=== PATIENT | male | born 1950 | race Caucasian/White ===

== ENCOUNTER → 2018-03-20 11:33 | Outpatient (CLI) | payer MEDICARE, OTHER, SELFPAY ==
--- NOTE | 2018-03-20 11:51 | DI.RAD.S_ITS ---
PROCEDURE: XR WRIST RT MIN 3V INDICATIONS: 67 year-old male with right wrist swelling and pain. TECHNIQUE: 4 views of the wrist were acquired. COMPARISON: None available. FINDINGS: Bones: No acute fractures or dislocations. Nonacute nonunited dorsal triquetral avulsion fracture is present on the lateral view. There is significant radiocarpal compartment joint degeneration. No suspicious bony lesions. Scaphoid view: Scaphoid appears intact. Soft tissues: There is radiocarpal compartment chondrocalcinosis. 1.3 cm posttraumatic heterotopic ossification is noted adjacent to the distal scaphoid and trapezium. IMPRESSION: 1. Nonacute nonunited dorsal triquetral avulsion fracture. 2. 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 3. Chondrocalcinosis as well as significant radiocarpal compartment degenerative narrowing, consistent with CPPD deposition disease. Dictated by: Leopoldo Goldstein M.D. on 03/20/2018 at 12:08 Approved by: Leopoldo Goldstein M.D. on 03/20/2018 at 12:12
== END ==
PROVIDERS: PCP Family Medicine; Visit Provider Family Medicine
DX: M11.231 Other chondrocalcinosis, right wrist (principal); M25.531 Pain in right wrist
CPT/HCPCS: 73110

== ENCOUNTER → 2018-08-14 09:06 | Outpatient (CLI) | payer MEDICARE, OTHER, SELFPAY ==
--- NOTE | 2018-08-14 09:08 | DI.MRI.S_ITS ---
PROCEDURE: MR LUMBAR SPINE WO CON INDICATIONS: Eval TECHNIQUE: Noncontrast sagittal T1 spin echo and T2 fast echo, sagittal STIR, axial T1 and T2 fast spin echo through the lumbar spine. In cases with scoliosis, additional coronal T2 fast spin echo may be performed. COMPARISON: [facility], MR, L-SPINE WITHOUT CONTRAST, 06/14/2014, 7:50. [facility], CR, L-SPINE 2-3 VIEWS, 03/18/2014, 9:16. [facility], CR, SPINE LUMB 2 OR 3VW, 02/03/2015, 14:55. FINDINGS: Image quality: Excellent. Alignment and Curvature: There is normal bony alignment. Bones: Minimal reactive endplate changes noted adjacent to the L3-L4 disc. Orthopedic screws noted across the right sacroiliac joint. No acute vertebral body compression fractures. Spinal Cord: Conus medullaris terminates at the T12 level. Visualized cord demonstrates normal signal and size. Paraspinous Soft Tissues: No paravertebral masses. L1-L2: Loss of the signal. Minimal, diffuse disc bulge. No central stenosis. Moderate bilateral neural foraminal narrowing. Focal high intensity zone noted in the posterior annulus. L2-L3: Loss of disc signal. Mild, diffuse disc bulge. Mild bilateral facet hypertrophy. Mild narrowing of the central canal. Moderate bilateral neural foraminal narrowing. No neural impingement. Focal high intensity zone noted in posterior annulus. L3-L4: Loss of disc signal and height. Mild, diffuse disc bulge. Moderate facet and mild ligamentum flavum hypertrophy. Moderate narrowing of the central canal. Severe bilateral neural foraminal narrowing with slight flexion deformity of the exiting L3 nerve roots. L4-L5: Loss of the signal. Mild diffuse disc bulge. Moderate facet and moderate ligamentum flavum hypertrophy. Moderate narrowing of the central canal. Mild bilateral neural foraminal narrowing. No neural impingement. L5-S1: Loss of disc signal and height. Mild, diffuse disc bulge. Small left central disc protrusion. Mild bilateral facet hypertrophy. Left central disc protrusion abuts and displaces the traversing left S1 nerve root. Mild bilateral neural foraminal narrowing. Focal high intensity zone within the posterior annulus. IMPRESSION: 1. Multilevel degenerative disc disease. 2. Multilevel facet arthropathy. 3. Moderate L3-L4 and L4-L5 central canal narrowing. Mild L2-L3 central canal narrowing. 4. Severe bilateral L3-L4 neural foraminal narrowing. Moderate bilateral L1-L2 and L2-L3 neural foraminal narrowing. Mild bilateral L4-L5 and L5-S1 neural foraminal narrowing. 5. Slight flattened deformity of the exiting L3 nerve root secondary to neural foraminal narrowing. Please correlate with clinical data. 6. Small central L5-S1 disc protrusion abuts and displaces the traversing left S1 nerve root. Please correlate with clinical data. Dictated by: Candi Casey MD, PhD on 08/14/2018 at 10:44 Approved by: Candi Casey MD, PhD on 08/14/2018 at 11:18
== END ==
PROVIDERS: PCP Family Medicine; Visit Provider Physical Medicine & Rehabilitation
DX: M51.36 Other intervertebral disc degeneration, lumbar region (principal); M51.37 Other intervertebral disc degeneration, lumbosacral region; M47.816 Spondylosis without myelopathy or radiculopathy, lumbar region; M47.817 Spondylosis without myelopathy or radiculopathy, lumbosacral region; M48.061 Spinal stenosis, lumbar region without neurogenic claudication; M48.07 Spinal stenosis, lumbosacral region
CPT/HCPCS: 72148

== ENCOUNTER → 2018-08-31 17:52 | Outpatient (REF) | payer MEDICARE, OTHER, SELFPAY | LOC: LAB 17:52 | PROVIDERS: PCP Family Medicine; Visit Provider Family Medicine | DX: T14.8XXA Other injury of unspecified body region, initial encounter (principal) | CPT/HCPCS: 87070; 87075; 87205 ==

== ENCOUNTER 2018-10-24 08:23 | Outpatient (CLI) | payer MEDICARE, SELFPAY ==
--- NOTE | 2018-10-24 08:28 | DI.RAD.S_ITS ---
PROCEDURE: PAIN SI JOINT INJECTION INDICATIONS: SACROCOCCYGEAL PAIN FINDINGS: Fluoroscopic spot filming was performed to verify placement of a spinal needle involving the inferior right sacroiliac joint, as labeled on the films. Appropriate location(s) of the needle tip(s) was confirmed by injection of iodinated contrast. IMPRESSION: Intraprocedural examination within normal limits. Dictated by: Song Meehan M.D. on 10/25/2018 at 8:58 Approved by: Song Meehan M.D. on 10/25/2018 at 8:59
[2018-10-24 08:34] VITALS: BP 155/90; PULSE 75; RESP 16; TEMP 37.1; O2SAT 96
--- NOTE | 2018-10-24 08:39 | PC.NURSE ---
PT REFUSING IV. HAVE EXPLAINED PROTOCAL AND SAFETY REASON OF WHY IV IS REQUIRED. PT CONTINUES TO REFUSE. WILL ALLOW DR. LAKHANI TO SPEAK WITH PT AND MAKE FINAL CALL.
[2018-10-24 09:15] VITALS: BP 147/96; PULSE 73; RESP 10; O2SAT 97
[2018-10-24] MEDS: MIDAZOLAM 5 MG/5 ML VIAL IV (09:15)
[2018-10-24 09:20] VITALS: BP 147/92; PULSE 81; RESP 14; O2SAT 97
[2018-10-24 09:24] VITALS: BP 142/89; PULSE 72; RESP 15; O2SAT 96
--- NOTE | 2018-10-24 09:31 | P.PCN_ITS ---
Procedures Date/Time Date of procedure: 10/24/18 Time of procedure: 09:30 General Procedure description: PREOP Dx: Sacroiliac joint pain/DJD POST OP DX: Sacroiliac Joint Pain/DJD Procedures: Fluoroscopic guided contrast controlled left sacroiliac joint injection Physician: Carlos A Awad D.O. Indications: Vinnie is referred by Dr. Gonzalez for treatment of left sacroiliac joint DJD Description of procedure Fluoroscopic guided, contrast controlled left sacroiliac joint injection Following denial of allergies and review of potential side effects and complications, including, but not necessarily limited to, infection, allergic reaction, local tissue breakdown, temporary as well as permanent nerve injury, paralysis, stroke and possible , the patient indicated that they understood and agreed to proceed. An informed consent was signed by the patient , witnessed by a nurse, and placed in the patient's chart. Additionally, other treatment options including modalities, medications, and physical therapy were reviewed with the patient. After review of previous anaesthesic history and IV conscious sedation the patient was deemed safe to proceed with todays procedure with IV conscious sedation as ASA class II designation. Safety time-out was performed to confirm patient ID, procedure to be performed and site of procedure. IV sedation was accomplished with a combination of 5mg of Versed administered by the RN after DO order, titrated to patient comfort during the course of the procedure while the patient remained responsive to all verbal commands. In the prone position following sterile prep and drape of the pelvic region, the hyper lucency on in the inferior aspect of the left sacroiliac joint was identified fluoroscopically the skin was anesthetized be a 25 gauge 1 eventual with approximately 2 cc of 1% lidocaine solution. At this point, a 22 gauge 3 in spinal needle was atraumatically introduced and advanced under fluoroscopic guidance into the inferior aspect of the left sacroiliac joint. Following negative aspiration, approximately 0.3 cc of Isovue-300 was injected confirming intra-articular placement without vascular uptake. Radiographic data, including multiple fluoroscopic views of the pelvis, reveals a spinal needle in the left sacroiliac joint hyper lucent zone. Subsequent view show flow contrast tear superiorly and inferiorly within the joint capsule without vascular intrathecal uptake. At this point a total of 1 cc or 0 8 of 0.5% Marcaine was combined with 1 cc of 6 mg of betamethasone was injected without incident. The patient tolerated the procedure well without signs or symptoms of complications prior to transfer to the recovery area for further monitoring. The patient was then transferred to the recovery area with a bur observed for an appropriate time after the injection. The patient reverted a vas score of 7 prior to the procedure and postprocedure vas of 1. Total fluoroscopy time: 22.7 sec Total conscious sedation time: 24 min Postop instructions The patient was provided with a pain like to continue to record the patient's response to the target specific procedure prior to the patient's follow-up visit with the referring physician. Additionally, specific post injection care instructions and a contact number to our office were provided if concerns arise regarding the possible complications associated with procedure are suspected. Carlos A Awad D.O. Complications: none
--- NOTE | 2018-10-24 09:33 | PC.NURSE ---
Pt finished procedure 923, able to get off table with standby assist. Taken via W/C to pre procedure room for continued monitoring with Ariadna GANNON.
[2018-10-24] MEDS: BUPIVACAINE 0.5% (PF) VIAL 2 ML INJ (09:34)
[2018-10-24] MEDS: IOPAMIDOL 15 ML VIAL 3 ML INJ (09:34)
[2018-10-24] MEDS: BETAMETHASONE 30 MG/5 ML MDV 12 MG INJ (09:35)
[2018-10-24 09:41] VITALS: BP 144/89; PULSE 74; RESP 18; O2SAT 96
[2018-10-24 09:47] VITALS: BP 131/78; PULSE 70; RESP 16; O2SAT 95
--- NOTE | 2018-10-25 16:18 | PC.NURSE ---
FOLLOW UP CALL ATTEMPTED, LEFT MSG WITH CLINIC # FOR QUESTIONS/CONCERNS.
== END 2018-10-24 09:54 | disposition home or self-care (01) ==
PROVIDERS: PCP Family Medicine; Visit Provider Physical Medicine & Rehabilitation
DX: M47.818 Spondylosis without myelopathy or radiculopathy, sacral and sacrococcygeal region (principal); M53.3 Sacrococcygeal disorders, not elsewhere classified; Z98.1 Arthrodesis status
CPT/HCPCS: 27096; 99152; J0702; J2250

== ENCOUNTER 2018-12-05 07:43 | Outpatient (CLI) | payer MEDICARE, SELFPAY ==
[2018-12-05] VITALS (7 sets, daily range): BP systolic 131–152; BP diastolic 73–88; PULSE 64–77; RESP 16–21; TEMP 36.6; O2SAT 97–100
--- NOTE | 2018-12-05 08:32 | DI.RAD.S_ITS ---
PROCEDURE: PAIN SI JOINT INJECTION INDICATIONS: INTERVERTEBRAL DISC DISPLACEMENT FINDINGS: Fluoroscopic spot filming was performed to verify placement of spinal needles at the right sacroiliac joint level(s), as labeled on the films. Appropriate location(s) of the needle tip(s) was confirmed by injection of iodinated contrast. Dictated by: Steffen López M.D. on 12/05/2018 at 9:54 Approved by: Steffen López M.D. on 12/05/2018 at 10:01
--- NOTE | 2018-12-05 08:32 | DI.RAD.S_ITS ---
PROCEDURE: PAIN L/S TRANSFORAMINAL INJECT INDICATIONS: INTERVERTEBRAL DISC DISPLACEMENT FINDINGS: Fluoroscopic spot filming was performed to verify placement of spinal needles at the L5-S1 level(s), as labeled on the films. Appropriate location(s) of the needle tip(s) was confirmed by injection of iodinated contrast. Dictated by: Steffen López M.D. on 12/05/2018 at 10:01 Approved by: Steffen López M.D. on 12/05/2018 at 10:02
[2018-12-05] MEDS: MIDAZOLAM 5 MG/5 ML VIAL IV (09:07)
[2018-12-05] MEDS: fentaNYL 100 MCG/2 ML INJ 50 MCG IV (09:14)
--- NOTE | 2018-12-05 09:26 | PM.PROC.1 ---
Procedures Date/Time Date of procedure: 12/05/18 Time of procedure: 09:26 General Procedure description: PREOP DIAGNOSIS 1. FORMAINAL STENOSIS WITH LE SYMPTOMS, POST OP DIAGNOSIS 1. FORMAINAL STENOSIS WITH LE SYMPTOMS, PROCEDURES 1.FLUOROSCOPICALLY GUIDED CONTRAST CONTROLLED TRANSFORAMINAL EPIDURAL STEROID INJECTION - RIGHT L5/S1 TFESI PHYSICIAN: Carlos A Awad DO INDICATIONS: Vinnie is referred by for treatment of Foraminal Stenosis with right LE Symptoms FINDINGS Foraminal Nerve Root Compression secondary to disc disease and facet hypertrophy DESCRIPTION OF PROCEDURE Following denial of allergy and review of potential side effects and complications, including, but not necessarily limited to, infection, allergic reaction, local tissue breakdown, stroke, temporary or permanent nerve injury, paralysis, and possible , the patient indicated that the patient understood and agreed to proceed. An informed consent document was signed by the patient, witnessed by a nurse, and placed in the patient's chart. Additionally, other treatment options including medications, modalities, and physical therapy were reviewed with the patient. After review of previous anaesthesic history and IV conscious sedation the patient was deemed safe to proceed with todays procedure with IV conscious sedation as ASA class II designation. Safety time-out was performed to confirm patient ID, procedure to be performed and site of procedure. IV sedation was accomplished with a combination of 3mg of Versed and 50mcg of Fentanyl was administered by the RN after DO order, titrated to patient comfort during the course of the procedure while the patient remained responsive to all verbal commands In the prone position following sterile prep and drape of the lumbar region, the right L5/S1 posterior neuroforamen was identified fluoroscopically. The skin was anesthetized via a 25-gauge 1.5-inch needle with 1% lidocaine solution. At this point, a 25-gauge 3.5-inch spinal needle was atraumatically introduced and advanced under fluoroscopic guidance through the posterior right L5/S1 neuroforamen to approximately the anterior aspect of the canal. Depth was confirmed on lateral view. Following negative aspiration, injection of approximately 1.5 cc of Isovue 200 under live fluoroscopy in the AP view confirmed excellent flow along the nerve root, into the epidural space without vascular or intrathecal uptake observed Radiological data, including multiple fluoroscopic views of the lumbosacral spine, reveal a spinal needle at the right L5/S1 posterior neuroforamen. Subsequent views show flow of contrast material flowing superiorly and inferiorly along the nerve root confirming epidural flow. Subsequently, a test dose of 1.5 cc of 1% lidocaine solution was administered and patient was observed for two minutes for signs or symptoms of complications, including abdominal pain, shortness of breath, bilateral upper or lower extremity weakness, nausea and vomiting, prior to steroid injection. At this point, a total of 2cc or 20 mg of dexamethasone was injected without incident. The procedure tolerated the procedure well without signs or symptoms of complications prior to transfer to the recovery area continued monitoring without incident. The patient was then transferred to the recovery area where they were observed for an appropriate time after the injection. The patient reported a VAS score of 7 prior to the procedure and a post-procedure VAS of 0. Total Fluoroscopy Time: 20.9 seconds Total Conscious Sedation Time: 24min POST OP INSTRUCTIONS The patient was provided a Pain Log to continue to record their response to the target-specific procedure prior to follow-up visit with their referring physician. Additionally, specific post-injection care instructions and a contact number to our office were provided if concerns arise regarding possible complications associated with the procedure are suspected. Carlos A Awad DO Complications: none
--- NOTE | 2018-12-05 09:27 | PM.PROC.1 ---
Procedures Date/Time Date of procedure: 12/05/18 Time of procedure: 09:27 General Procedure description: PREOP Dx: Sacroiliac joint pain/DJD POST OP DX: Sacroiliac Joint Pain/DJD Procedures: Fluoroscopic guided contrast controlled right sacroiliac joint injection Physician: Carlos A Awad D.O. Indications: Vinnie is referred by Dr. Gonzalez for treatment of right sacroiliac joint DJD Description of procedure Fluoroscopic guided, contrast controlled right sacroiliac joint injection Following denial of allergies and review of potential side effects and complications, including, but not necessarily limited to, infection, allergic reaction, local tissue breakdown, temporary as well as permanent nerve injury, paralysis, stroke and possible , the patient indicated that they understood and agreed to proceed. An informed consent was signed by the patient, witnessed by a nurse, and placed in the patient's chart. Additionally, other treatment options including modalities, medications, and physical therapy were reviewed with the patient. After review of previous anaesthesic history and IV conscious sedation the patient was deemed safe to proceed with todays procedure with IV conscious sedation as ASA class II designation. Safety time-out was performed to confirm patient ID, procedure to be performed and site of procedure. IV sedation was accomplished with a combination of 3mg of Versed and 50mcg of Fentanyl was administered by the RN after DO order, titrated to patient comfort during the course of the procedure while the patient remained responsive to all verbal commands In the prone position following sterile prep and drape of the pelvic region, the hyper lucency on in the inferior aspect of the sacroiliac joint was identified fluoroscopically the skin was anesthetized be a 25 gauge 1 eventual with approximately 2 cc of 1% lidocaine solution. At this point, a 22 gauge 3 in spinal needle was atraumatically introduced and advanced under fluoroscopic guidance into the inferior aspect of the right sacroiliac joint. Following negative aspiration, approximately 0.3 cc of Isovue-300 was injected confirming intra-articular placement without vascular uptake. Radiographic data, including multiple fluoroscopic views of the pelvis, reveals a spinal needle in the sacroiliac joint hyper lucent zone. Subsequent view show flow contrast tear superiorly and inferiorly within the joint capsule without vascular intrathecal uptake. At this point a total of 1 cc or 0 8 of 0.5% Marcaine was combined with 1 cc of 6 mg of betamethasone was injected without incident. The procedure tolerated the procedure well without signs or symptoms of complications prior to transfer to the recovery area continued monitoring without incident. The patient was then transferred to the recovery area with a bur observed for an appropriate time after the injection. The patient reverted a vas score of 7 prior to the procedure and postprocedure vas of 1. Total fluoroscopy time: 22.7 sec Total conscious sedation time: 24 min Postop instructions The patient was provided with a pain like to continue to record the patient's response to the target specific procedure prior to the patient's follow-up visit with the referring physician. Additionally, specific post injection care instructions and a contact number to our office were provided if concerns arise regarding the possible complications associated with procedure are suspected. Carlos A Awad D.O. Complications: none
[2018-12-05] MEDS: BETAMETHASONE 30 MG/5 ML MDV 12 MG INJ (09:32)
[2018-12-05] MEDS: BUPIVACAINE 0.5% (PF) VIAL 30 ML INJ (09:32)
[2018-12-05] MEDS: BUPIVACAINE 0.25% (PF) VIAL 2 ML INJ (09:33)
[2018-12-05] MEDS: IOPAMIDOL 15 ML VIAL 3 ML INJ (09:33)
[2018-12-05] MEDS: DEXAMETHASONE 10 MG/ML VIAL 20 MG INJ (09:34)
--- NOTE | 2018-12-05 10:47 | PC.NURSE ---
procedure ended at 09, pt assisted off gurney awake and alert, able to transfer with minimal assist. pt tolerated procedure and transferred via wheelchair to pre procedure room for continued monitoring with Ariadna GANNON.
--- NOTE | 2018-12-06 16:18 | PC.NURSE ---
Called to Follow up with patient post procedure. Went to voicemail so I left a message.
== END 2018-12-05 10:01 | disposition home or self-care (01) ==
LOC: RAD 07:44
PROVIDERS: PCP Family Medicine; Visit Provider Physical Medicine & Rehabilitation
DX: M53.3 Sacrococcygeal disorders, not elsewhere classified (principal); M51.17 Intervertebral disc disorders with radiculopathy, lumbosacral region; M48.07 Spinal stenosis, lumbosacral region; M47.818 Spondylosis without myelopathy or radiculopathy, sacral and sacrococcygeal region
CPT/HCPCS: 27096; 64483; 99152; J0702; J1100; J2250; J3010

== ENCOUNTER 2019-05-10 09:27 | Outpatient (CLI) | payer MEDICARE, SELFPAY ==
[2019-05-10] VITALS (8 sets, daily range): BP systolic 129–156; BP diastolic 78–108; PULSE 66–76; RESP 16; TEMP 36.9; O2SAT 96–99
--- NOTE | 2019-05-10 09:37 | DI.RAD.S_ITS ---
PROCEDURE: PAIN L/SI FACET INJ/BLK 1STL INDICATIONS: SPONDYLOSIS FINDINGS: Fluoroscopic spot filming was performed to verify placement of spinal needles at the L4, L5 and S1 level(s), as labeled on the films. Appropriate location(s) of the needle tip(s) was confirmed by injection of iodinated contrast. IMPRESSION: Fluoroscopy for pain management. Dictated by: Keri Rosales M.D. on 05/10/2019 at 13:21 Approved by: Keri Rosales M.D. on 05/10/2019 at 13:21
[2019-05-10] MEDS: MIDAZOLAM 5 MG/5 ML VIAL IV (10:55)
[2019-05-10] MEDS: fentaNYL 100 MCG/2 ML INJ 50 MCG IV (10:55)
[2019-05-10] MEDS: IOPAMIDOL 15 ML VIAL 3 ML INJ (11:00)
[2019-05-10] MEDS: LIDOCAINE 1% 20 ML INJ 5 ML INJ (11:00)
[2019-05-10] MEDS: BUPIVACAINE 0.5% (PF) VIAL 2 ML INJ (11:01)
[2019-05-10] MEDS: BETAMETHASONE 30 MG/5 ML MDV 6 MG INJ (11:01)
--- NOTE | 2019-05-10 11:07 | PC.NURSE ---
Pt tolerated procedure well. Able to get off table with standby assist. Transferred pt via wheelchair to pre procedure room for continued monitoring with Ariadna GANNON.
--- NOTE | 2019-05-10 11:31 | P.PCN_ITS ---
Procedures Date/Time Date of procedure: 05/10/19 Time of procedure: 11:29 General Procedure description: POST OP DIAGNOSIS 1. FACET ARTHROPATHY PROCEDURES 1. Right L4, L5 and S1 MB BLOCKS PHYSICIAN: Carlos A Awad, DO LYNNETTE [place] is referred by Dr. Cristina for treatment of Right Axial LBP. DESCRIPTION OF PROCEDURE Fluoroscopically guided, contrast-controlled right L4, L5 and S1 medial branch blocks with 0.5cc of 0.5% Marcaine. Following review of allergy and review of potential side effects and complications, including, but not necessarily limited to, infection, allergic reaction, local tissue breakdown, nerve injury, paralysis, stroke and possible , the patient indicated that the patient understood and agreed to proceed. An informed consent document was signed by the patient, witnessed by a nurse, and placed in the patient's chart. After review of previous anaesthesic history and IV conscious sedation the patient was deemed safe to proceed with todays procedure with IV conscious sedation as ASA class II designation. Safety time-out was performed to confirm patient ID, procedure to be performed and site of procedure. IV sedation was accomplished with a combination of 2mg of Versed and 50mcg of Fentanyl was administered by the RN after DO order, titrated to patient comfort during the course of the procedure while the patient remained responsive to all verbal commands In the prone position, following sterile prep and drape of the lumbar region, the right L4, L5 and S1 anatomical location of the medial branch of the dorsal ramus was identified fluoroscopically. Subsequently an anesthetic skin wheal using 1% lidocaine solution was initiated at each of the anatomical spots. Subsequently then a 22-gauge 3.5-inch spinal needle was atraumatically introduced and advanced under fluoroscopic guidance at each of the corresponding sites at the right L4, L5 and S1 MB. After negative aspiration, 0.2 cc of Isovue 200 was injected, confirming placement without vascular or intrathecal uptake. Subsequently then 0.5 cc of 0.5% Marcaine solution was injected at each of the corresponding sites at the right L4, L5 and S1 medial branch locations. The patient tolerated the procedure well without signs or symptoms of complications. The procedure tolerated the procedure well without signs or symptoms of complications prior to transfer to the recovery area continued monitoring without incident. Post-procedure, the patient was monitored initiating provocative activities to measure the amount of relief from block of the facetogenic pain. The patient reported a VAS of 7 prior to the procedure and a post-procedure VAS of 1. It has been a pleasure to assist in the diagnostic and therapeutic care of your patient. Total Fluoroscopy Time: 24.8 seconds Total Conscious Sedation Time: 24min POST OP INSTRUCTIONS The patient was provided with a Pain Log to complete over the next several hours and subsequent days prior to the patient's follow up with the ordering physician. 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 The patient is aware, was provided, once again, with a Pain Log and will follow up with the referring physician for review and clinical correlation Carlso A Awad DO Complications: none
== END 2019-05-10 11:40 | disposition home or self-care (01) ==
LOC: RAD 09:34
PROVIDERS: PCP Family Medicine; Visit Provider Physical Medicine & Rehabilitation
DX: M47.816 Spondylosis without myelopathy or radiculopathy, lumbar region (principal); M43.28 Fusion of spine, sacral and sacrococcygeal region; M51.27 Other intervertebral disc displacement, lumbosacral region; Z98.1 Arthrodesis status
CPT/HCPCS: 64493; 64494; 99152; J0702; J1100; J2250; J3010

== ENCOUNTER 2019-07-19 07:32 | Outpatient (CLI) | payer MEDICARE, SELFPAY ==
[2019-07-19] VITALS (9 sets, daily range): BP systolic 135–156; BP diastolic 79–92; PULSE 66–73; RESP 16–20; TEMP 36.7; O2SAT 95–100
--- NOTE | 2019-07-19 07:35 | DI.RAD.S_ITS ---
PROCEDURE: PAIN L/S MED/LAT N RFA INDICATIONS: SPONDYLOSIS FINDINGS: Fluoroscopic spot filming was performed to verify placement of spinal needles at the L4, L5 and S1 level(s), as labeled on the films. Appropriate location(s) of the needle tip(s) was confirmed by injection of iodinated contrast. IMPRESSION: Fluoroscopy for pain management. Dictated by: Keri Rosales M.D. on 07/19/2019 at 11:15 Approved by: Keri Rosales M.D. on 07/19/2019 at 11:16
--- NOTE | 2019-07-19 08:21 | PC.NURSE ---
Pre procedure note: VSS, Consent signed. To procedure room at [id number]
[2019-07-19] MEDS: fentaNYL 100 MCG/2 ML INJ 50 MCG IV (08:38)
[2019-07-19] MEDS: MIDAZOLAM 5 MG/5 ML VIAL IV (08:38)
[2019-07-19] MEDS: LIDOCAINE 1% 20 ML 10 ML INJ (08:49)
[2019-07-19] MEDS: BETAMETHASONE 30 MG/5 ML MDV 12 MG INJ (08:49)
[2019-07-19] MEDS: BUPIVACAINE 0.5% (PF) VIAL 5 ML INJ (08:50)
--- NOTE | 2019-07-19 08:57 | PC.NURSE ---
ASSISTING PT OFF TABLE AND TRANSPORTING TO POST PROC AREA IN STABLE CONDITION. PASSING RN CARE OF PT TO JAROCHO Stein RN.
--- NOTE | 2019-07-19 09:04 | P.PCN_ITS ---
Procedures Date/Time Date of procedure: 07/19/19 Time of procedure: 09:04 General Procedure description: PREOP DIAGNOSIS 1. RECALCITRANT FACET ARTHROPATHY, POST OP DIAGNOSIS 1. RECALCITRANT FACET ARTHROPATHY, PROCEDURES 1. RIGHT L4 AND L5 MEDIAL BRANCH RADIOFREQUENCY NEUROTOMY AND RIGHT S1 DORSAL RAMUS BRANCH RADIOFREQUENCY NEUROTOMY, SURGEON: Carlos A Awad, DO INDICATIONS Vinnie is referred by Dr. Gonzalez for treatment of facet arthropathy. DESCRIPTION OF PROCEDURE Right L4 and L5 medial branch radiofrequency neurotomy and right S1 dorsal ramus branch radiofrequency neurotomy under fluoroscopy with conscious sedation. The patient is well known to this clinic having undergone previous facet injections with good but temporary relief. The patient has experienced appropriate, concordant relief with previous facet and median branch blocks but the patient's pain has been recalcitrant to further conservative measures. Therefore, based upon the patient's relief and persistent symptoms, the patient is considered an appropriate candidate for facet rhizotomy. All of the patient's questions regarding the risks versus benefits of the procedure, including, but not limited to, bleeding, infection, temporary as well as lasting nerve injury, paralysis, stroke, and , as well treatment alternatives were answered to satisfaction. After review of previous anaesthesic history and IV conscious sedation the patient was deemed safe to proceed with todays procedure with IV conscious sedation as ASA class II designation. Safety time-out was performed to confirm patient ID, procedure to be performed and site of procedure. IV sedation was accomplished with a combination of 3mg of Versed and 50mcg of Fentanyl was administered by the RN after DO order, titrated to patient comfort during the course of the procedure while the patient remained responsive to all verbal commands. After obtaining informed consent, denial of pertinent drug allergies, as well as being made aware of the potential risks of bleeding, infection, spinal cord trauma, paralysis, temporary and permanent nerve damage, seizure, stroke, and possible , the patient was brought to the fluoroscopy suite and positioned prone on the fluoroscopy table. The lumbar region was prepped with Betadine and covered with a fenestrated drape in the usual sterile fashion. Appropriate monitors applied including pulse oximeter, pulse, and blood pressure for regular monitoring throughout the procedure. After local infiltration using 1% lidocaine, under fluoroscopic guidance, a 10- cm RF insulated needle with a 10-mm active tip was positioned parallel to the junction of the right sacral ala and the superior articulating process where the S1 dorsal ramus resides. Needle placement was confirmed with sensory stimulation at 50 Hz, with motor stimulation of .5v on the right which produced local stimulation without radicular component. The stimulation was then increased to 1.5v with, once again, only local multifidus stimulation without radicular component. This was then followed by two discreet lesions performed at 80 degrees Celsius for 90 seconds each. The needle was then removed and the identical procedure was performed along the length of the right L5 medial branch with motor stimulation at .7v on the right. The identical procedure was once again performed along the length of the right L4 medial branch with motor stimulation of .5v on the right. The patient tolerated the procedure well without signs or symptoms of complications prior to transfer to the recovery area continued monitoring without incident. The patient was then transferred to the recovery area where they were observed for an appropriate period of time after the injection. The patient was then transferred to the recovery area where they were observed for an appropriate period of time after the injection. The patient reported a VAS score of 9 prior to the procedure and a post- procedure VAS of 0. Total Fluoroscopy Time: 31 seconds Total Conscious Sedation Time: 45min POST OP INSTRUCTIONS The patient was provided a Pain Log to continue to record the patient's response to the target-specific procedure prior to the patient's follow-up visit with the referring physician. Additionally, specific post-injection care instructions and a contact number to our office were provided if concerns arise regarding possible complications associated with the procedure are suspected. Carlos A Awad DO Complications: none
== END 2019-07-19 09:20 ==
LOC: RAD 07:34
PROVIDERS: Family Provider Family Medicine; PCP Family Medicine; Visit Provider Physical Medicine & Rehabilitation
DX: M47.816 Spondylosis without myelopathy or radiculopathy, lumbar region (principal); M47.817 Spondylosis without myelopathy or radiculopathy, lumbosacral region
CPT/HCPCS: 64635; 64636; 99152; 99153; J0702; J2250; J3010

== ENCOUNTER → 2019-08-13 10:56 | Outpatient (CLI) | payer MEDICARE, SELFPAY ==
--- NOTE | 2019-08-13 | DI.RAD.S_ITS ---
PROCEDURE: XR KNEE RT 3V INDICATIONS: RIGHT KNEE PAIN TECHNIQUE: 3 views of the knee were acquired. COMPARISON: [facility], , KNEE 3V RIGHT, 03/31/2015, 14:05. FINDINGS: Bones: Moderate to severe medial compartment osteophytosis. Moderate patellofemoral compartment osteophytosis. Mild lateral compartment osteoarthritis. Soft tissues: No joint effusion. No suspicious soft tissue calcifications. IMPRESSION: 1. Tricompartmental arthritis. 2. No fracture. No acute osseous lesion. If symptoms and/or clinical suspicion for pathology persists, further assessment with advanced imaging (e.g. CT, MRI or bone scan) may be helpful. Dictated by: Candi Casey MD, PhD on 08/13/2019 at 15:36 Approved by: Candi Casey MD, PhD on 08/13/2019 at 15:37
--- NOTE | 2019-08-13 | DI.RAD.S_ITS ---
PROCEDURE: XR WRIST RT 2V INDICATIONS: RIGHT WRIST MASS TECHNIQUE: 4 views of the wrist were acquired. COMPARISON: [facility], , XR WRIST RT MIN 3V, 03/20/2018, 11:35. FINDINGS: Bones: No fractures or dislocations. No suspicious bony lesions. Severe diffuse carpal and radiocarpal joint degeneration. Distal radial ulnar joint degeneration Soft tissues: Prominent periarticular heterotopic ossification, as well as chondrocalcinosis. Small loose body versus ununited fracture fragment at the tip of the ulnar styloid. IMPRESSION: Severe right wrist joint degeneration. Chondrocalcinosis Prominent heterotopic ossification along the radial aspect of the carpus as before. Overall, no definite interval change since 03/20/18 Dictated by: Steffen López M.D. on 08/13/2019 at 16:03 Approved by: Steffen López M.D. on 08/13/2019 at 16:06
--- NOTE | 2019-08-13 | DI.RAD.S_ITS ---
PROCEDURE: XR FOOT LT 2V INDICATIONS: LEFT HEEL PAIN TECHNIQUE: 2 views of the foot were acquired. COMPARISON: None. FINDINGS: Bones: No fractures or dislocations. No suspicious bony lesions. Severe first MTP joint osteoarthritis. Mild midfoot osteoarthritis. Chronic second and third metatarsal fractures which have healed with deformity. Soft tissues: No tibiotalar joint effusion. Achilles tendon appears normal. IMPRESSION: 1. No acute fracture. No acute osseous lesion. If symptoms and/or clinical suspicion for pathology persists, further assessment with repeat radiographs (7-10 days) or advanced imaging (e.g. CT, MRI or bone scan) may be helpful. 2. First MTP joint and mid foot arthritis. 3. Chronic second and third metatarsal fractures healed with deformity. Dictated by: Candi Casey MD, PhD on 08/13/2019 at 15:33 Approved by: Candi Casey MD, PhD on 08/13/2019 at 15:35
== END ==
PROVIDERS: PCP Family Medicine; Visit Provider Family Medicine
DX: M25.561 Pain in right knee (principal); M17.11 Unilateral primary osteoarthritis, right knee; M79.672 Pain in left foot; M19.072 Primary osteoarthritis, left ankle and foot; R22.31 Localized swelling, mass and lump, right upper limb; M19.031 Primary osteoarthritis, right wrist; M11.231 Other chondrocalcinosis, right wrist
CPT/HCPCS: 73110; 73562; 73630

== ENCOUNTER 2019-09-25 07:31 | Outpatient (CLI) | payer MEDICARE, SELFPAY ==
[2019-09-25] VITALS (7 sets, daily range): BP systolic 133–161; BP diastolic 83–98; PULSE 16–82; RESP 16; TEMP 36.9; O2SAT 95–99
--- NOTE | 2019-09-25 07:31 | DI.RAD.S_ITS ---
PROCEDURE: PAIN L/S MED/LAT N RFA INDICATIONS: SPONDYLOSIS FINDINGS: Fluoroscopic spot filming was performed to verify placement of spinal needles at the L4, L5 and S1 level(s), as labeled on the films. Appropriate location(s) of the needle tip(s) was confirmed by injection of iodinated contrast. IMPRESSION: Fluoroscopy for pain management. Dictated by: Keri Rosales M.D. on 09/25/2019 at 11:55 Approved by: Keri Rosales M.D. on 09/25/2019 at 11:55
[2019-09-25] MEDS: MIDAZOLAM 5 MG/5 ML VIAL IV (08:47)
[2019-09-25] MEDS: fentaNYL 100 MCG/2 ML INJ 50 MCG IV (08:47)
[2019-09-25] MEDS: LIDOCAINE 1% 20 ML 10 ML INJ (09:09)
[2019-09-25] MEDS: BETAMETHASONE 30 MG/5 ML MDV 12 MG INJ (09:10)
[2019-09-25] MEDS: BUPIVACAINE 0.5% (PF) VIAL 2 ML INJ (09:10)
--- NOTE | 2019-09-25 09:19 | P.PCN_ITS ---
Procedures Date/Time Date of procedure: 09/25/19 Time of procedure: 09:19 General Procedure description: PREOP DIAGNOSIS 1. RECALCITRANT FACET ARTHROPATHY, POST OP DIAGNOSIS 1. RECALCITRANT FACET ARTHROPATHY, PROCEDURES 1. RIGHT L4 AND L5 MEDIAL BRANCH RADIOFREQUENCY NEUROTOMY AND RIGHT S1 DORSAL RAMUS BRANCH RADIOFREQUENCY NEUROTOMY, SURGEON: Carlos A Awad, DO INDICATIONS Vinnie is referred by for treatment of facet arthropathy. DESCRIPTION OF PROCEDURE Right L4 and L5 medial branch radiofrequency neurotomy and right S1 dorsal ramus branch radiofrequency neurotomy under fluoroscopy with conscious sedation. The patient is well known to this clinic having undergone previous facet injections with good but temporary relief. The patient has experienced appropriate, concordant relief with previous facet and median branch blocks but the patient's pain has been recalcitrant to further conservative measures. Therefore, based upon the patient's relief and persistent symptoms, the patient is considered an appropriate candidate for facet rhizotomy. All of the patient's questions regarding the risks versus benefits of the procedure, including, but not limited to, bleeding, infection, temporary as well as lasting nerve injury, paralysis, stroke, and , as well treatment alternatives were answered to satisfaction. After review of previous anaesthesic history and IV conscious sedation the patient was deemed safe to proceed with todays procedure with IV conscious sedation as ASA class II designation. Safety time-out was performed to confirm patient ID, procedure to be performed and site of procedure. IV sedation was accomplished with a combination of 3mg of Versed and 50mcg of Fentanyl was administered by the RN after DO order, titrated to patient comfort during the course of the procedure while the patient remained responsive to all verbal commands. After obtaining informed consent, denial of pertinent drug allergies, as well as being made aware of the potential risks of bleeding, infection, spinal cord trauma, paralysis, temporary and permanent nerve damage, seizure, stroke, and possible , the patient was brought to the fluoroscopy suite and positioned prone on the fluoroscopy table. The lumbar region was prepped with Betadine and covered with a fenestrated drape in the usual sterile fashion. Appropriate monitors applied including pulse oximeter, pulse, and blood pressure for regular monitoring throughout the procedure. After local infiltration using 1% lidocaine, under fluoroscopic guidance, a 10- cm RF insulated needle with a 10-mm active tip was positioned parallel to the junction of the right sacral ala and the superior articulating process where the S1 dorsal ramus resides. Needle placement was confirmed with sensory stimulation at 50 Hz, with motor stimulation of .5v on the right which produced local stimulation without radicular component. The stimulation was then increased to 1.5v with, once again, only local multifidus stimulation without radicular component. This was then followed by two discreet lesions performed at 80 degrees Celsius for 90 seconds each. The needle was then removed and the identical procedure was performed along the length of the right L5 medial branch with motor stimulation at .7v on the right. The identical procedure was once again performed along the length of the right L4 medial branch with motor stimulation of .5v on the right. The patient tolerated the procedure well without signs or symptoms of complications prior to transfer to the recovery area continued monitoring without incident. The patient was then transferred to the recovery area where they were observed for an appropriate period of time after the injection. The patient was then transferred to the recovery area where they were observed for an appropriate period of time after the injection. The patient reported a VAS score of 9 prior to the procedure and a post- procedure VAS of 0. Total Fluoroscopy Time: 31 seconds Total Conscious Sedation Time: 45min POST OP INSTRUCTIONS The patient was provided a Pain Log to continue to record the patient's response to the target-specific procedure prior to the patient's follow-up visit with the referring physician. Additionally, specific post-injection care instructions and a contact number to our office were provided if concerns arise regarding possible complications associated with the procedure are suspected. Carlos A Awad DO Complications: none
--- NOTE | 2019-09-25 09:19 | PC.NURSE ---
ACCEPTED CARE OF PT IN POST PROC AREA IN STABLE CONDITION. PT A&OX4, VSS, STEADY ON FEET.
--- NOTE | 2019-09-25 15:36 | PC.NURSE ---
Post procedure transfer note: Pt. medicated per providers orders. Patient tolerated procedure well. VSS stable throughout. Able to sit up and transfer to w/c with stand by assist. Hand off report given to Rishabh Zelaya RN. VSS on arrival. Pain level 0/10. Denies any unusual numbness or tingling to lower extremities.
== END 2019-09-25 09:38 | disposition home or self-care (01) ==
LOC: RAD 07:31
PROVIDERS: PCP Family Medicine; Visit Provider Physical Medicine & Rehabilitation
DX: M47.816 Spondylosis without myelopathy or radiculopathy, lumbar region (principal); M47.817 Spondylosis without myelopathy or radiculopathy, lumbosacral region
CPT/HCPCS: 64635; 64636; 99152; 99153; J0702; J2250; J3010

== ENCOUNTER 2019-11-20 11:22 | Outpatient (CLI) | payer MEDICARE, SELFPAY ==
--- NOTE | 2019-11-20 11:24 | DI.RAD.S_ITS ---
PROCEDURE: XR LUMBAR SPINE MIN 4V INDICATIONS: Lumbosacral spondylosis status post sacral fusion TECHNIQUE: 5 views of the lumbar spine were acquired. COMPARISON: [facility], CR, L-SPINE 2-3 VIEWS, 03/18/2014, 9:16. [facility], CR, L-SPINE 2-3 VIEWS, 01/14/2014, 16:02. FINDINGS: Bones: 5 nonrib-bearing vertebrae are present. There is normal bony alignment. No vertebral body compression fractures. No suspicious bony lesions. Interval cannulated screw fixation crossing the right sacroiliac joint. Note is made of joint space narrowing moderate in severity at L5-S1 with associated facet osteoarthritis becoming progressively more prominent from L3-S1 and especially at L5-S1. Spinal and foraminal stenosis would be expected in a L4-5 and to a greater degree at L5-S1. Soft tissues: Overlying bowel gas pattern is normal. No suspicious soft tissue calcifications. Oblique images: No pars defects. IMPRESSION: Interval right sacroiliac joint cannulated fixation screws have been placed. No additional surgical intervention is seen. No fracture found. Degenerative changes along the lumbosacral spine have mildly worsened from 03/18/14, and are most prominent from L3-S1, especially at L4-5 and L5-S1 where significant spinal and foraminal stenosis likely is present. Dictated by: Christoph Delgado M.D. on 11/20/2019 at 12:00 Approved by: Christoph Delgado M.D. on 11/20/2019 at 12:02
--- NOTE | 2019-11-20 11:24 | DI.RAD.S_ITS ---
PROCEDURE: PAIN SI JOINT INJECTION INDICATIONS: SACROCCOCYGEAL DISORDER FINDINGS: Fluoroscopic spot filming was performed to verify placement of spinal needles at the lower right level(s), as labeled on the films. Appropriate location(s) of the needle tip(s) was confirmed by injection of iodinated contrast. Cannulated screws across the right SI joint as was previously the case on multiple prior similar images from 2019 IMPRESSION: Inferior right sacroiliac joint needle tip localization presumably for steroid injection. Dictated by: Christoph Delgado M.D. on 11/20/2019 at 14:15 Approved by: Christoph Delgado M.D. on 11/20/2019 at 14:17
[2019-11-20 11:50] VITALS: BP 132/81; PULSE 93; RESP 18; O2SAT 96
[2019-11-20 12:24] VITALS: BP 104/52; PULSE 81; RESP 16; O2SAT 96
--- NOTE | 2019-11-20 12:25 | PC.NURSE ---
NO SEDATION MEDS GIVEN
[2019-11-20 12:29] VITALS: BP 111/66; PULSE 73; RESP 16; O2SAT 96
[2019-11-20] MEDS: IOPAMIDOL 15 ML VIAL 3 ML INJ (12:33)
[2019-11-20] MEDS: BUPIVACAINE 0.5% (PF) VIAL 2 ML INJ (12:33)
[2019-11-20] MEDS: BETAMETHASONE 30 MG/5 ML MDV 12 MG INJ (12:33)
[2019-11-20 12:34] VITALS: BP 106/54; PULSE 85; RESP 16; O2SAT 99
--- NOTE | 2019-11-20 12:36 | PC.NURSE ---
NO SEDATION MEDS GIVEN. TRANSPORTING PT TO POST PROC AREA IN STABLE CONDTION. PASSING RN CARE OF PT OFF TO ALIYA Alegria RN.
--- NOTE | 2019-11-20 12:37 | PM.PROC.1 ---
Procedures Date/Time Date of procedure: 11/20/19 Time of procedure: 12:37 General Procedure description: PREOP Dx: Sacroiliac joint pain/DJD POST OP DX: Sacroiliac Joint Pain/DJD Procedures: Fluoroscopic guided contrast controlled right sacroiliac joint injection Physician: Carlos A Awad D.O. Indications: Vinnie is referred by for treatment of right sacroiliac joint DJD Description of procedure Fluoroscopic guided, contrast controlled right sacroiliac joint injection Following review of allergies and review of potential side effects and complications, including, but not necessarily limited to, infection, allergic reaction, local tissue breakdown, temporary as well as permanent nerve injury, paralysis, stroke and possible , the patient indicated that they understood and agreed to proceed. An informed consent was signed by the patient, witnessed by a nurse, and placed in the patient's chart. Additionally, other treatment options including modalities, medications, and physical therapy were reviewed with the patient. After review of previous anaesthesic history and IV conscious sedation the patient was deemed safe to proceed with todays procedure with IV conscious sedation as ASA class II designation. Safety time-out was performed to confirm patient ID, procedure to be performed and site of procedure. IV sedation was deemed unnecessary and thus not administered by the RN after DO order, titrated to patient comfort during the course of the procedure while the patient remained responsive to all verbal commands In the prone position following sterile prep and drape of the pelvic region, the hyper lucency on in the inferior aspect of the sacroiliac joint was identified fluoroscopically the skin was anesthetized be a 25 gauge 1.5inch needle with approximately 2cc of 1% lidocaine solution. At this point, a 25 gauge 3in spinal needle was atraumatically introduced and advanced under fluoroscopic guidance into the inferior aspect of the right sacroiliac joint. Following negative aspiration, approximately 0.3 cc of [id number]-300 was injected confirming intra-articular placement without vascular uptake. Radiographic data, including multiple fluoroscopic views of the pelvis, reveals a spinal needle in the sacroiliac joint hyper lucent zone. Subsequent view show flow contrast tear superiorly and inferiorly within the joint capsule without vascular intrathecal uptake. At this point a total of 1 cc of 0.5% Marcaine was combined with 1cc of 6 mg of betamethasone was injected without incident. The procedure tolerated the procedure well without signs or symptoms of complications prior to transfer to the recovery area continued monitoring without incident. The patient was then transferred to the recovery area with a bur observed for an appropriate time after the injection. The patient reverted a vas score of 7 prior to the procedure and postprocedure vas of 1. Total fluoroscopy time: 8 sec Total conscious sedation time: 24 min Postop instructions The patient was provided with a pain like to continue to record the patient's response to the target specific procedure prior to the patient's follow-up visit with the referring physician. Additionally, specific post injection care instructions and a contact number to our office were provided if concerns arise regarding the possible complications associated with procedure are suspected. Carlos A Awad D.O. Complications: none
[2019-11-20 12:43] VITALS: BP 135/79; PULSE 86; RESP 16; O2SAT 96
== END 2019-11-20 12:49 | disposition home or self-care (01) ==
LOC: RAD 11:23
PROVIDERS: PCP Family Medicine; Referring Provider Physical Medicine & Rehabilitation; Visit Provider Physical Medicine & Rehabilitation
DX: M53.3 Sacrococcygeal disorders, not elsewhere classified (principal); M47.818 Spondylosis without myelopathy or radiculopathy, sacral and sacrococcygeal region
CPT/HCPCS: 27096; 72110; J0702; J2250; J3010

== ENCOUNTER → 2020-03-28 12:07 | Outpatient (CLI) | payer MEDICARE, SELFPAY ==
--- NOTE | 2020-03-28 | DI.RAD.S_ITS ---
PROCEDURE: XR ANKLE LT MIN 3V INDICATIONS: left ankle pain TECHNIQUE: 3 views of the ankle were acquired. COMPARISON: None. FINDINGS: Bones: No acute fractures or dislocations. Ankle mortise is normally aligned. No suspicious bony lesions. Chronic ossification of the distal tibiofibular syndesmosis. Tibiotalar joint herniation and spurring. Plantar calcaneal spur. Diffuse mid foot and hindfoot spurring and sclerosis. Partially visualized prominent first MTP joint osteophytes Soft tissues: No tibiotalar joint effusion. Achilles tendon appears normal. IMPRESSION: Diffuse hindfoot and tibiotalar joint degeneration Plantar calcaneal spur Dictated by: Steffen López M.D. on 03/28/2020 at 12:46 Approved by: Steffen López M.D. on 03/28/2020 at 12:55
== END ==
PROVIDERS: PCP Family Medicine; Referring Provider Family Medicine; Visit Provider Family Medicine
DX: M25.572 Pain in left ankle and joints of left foot (principal)
CPT/HCPCS: 73610

== ENCOUNTER → 2020-08-04 13:11 | Outpatient (CLI) | payer MEDICARE, SELFPAY | PROVIDERS: PCP Family Medicine; Visit Provider Physician Assistant | DX: L03.90 Cellulitis, unspecified (principal) | CPT/HCPCS: 87070; 87075; 87077; 87147; 87186; 87205 ==

== ENCOUNTER → 2021-03-25 13:26 | Outpatient (CLI) | payer MEDICARE, SELFPAY ==
--- NOTE | 2021-03-25 | DI.RAD.S_ITS ---
PROCEDURE: XR FOOT LT MIN 3V INDICATIONS: Hallux rigidus, left foot TECHNIQUE: 3 views of the foot were acquired. COMPARISON: [facility], CR, XR FOOT LT 2V, 08/13/2019, 11:12. FINDINGS: Bones: No acute fractures or dislocations. No suspicious bony lesions. There are severe degenerative changes of the metatarsophalangeal joint consistent with osteoarthritis. There are healed fractures of the 2nd and 3rd metatarsals and the distal fibula. Pes planus is noted. A lucency is seen of the medial navicular bone, this is probably due to overlying soft tissue. Soft tissues: No tibiotalar joint effusion. Achilles tendon appears normal. IMPRESSION: 1. Hallux rigidus of the left great toe. 2. Pes planus of the left foot. 3. Healed fractures of the 2nd and 3rd metatarsals and distal fibula. 4. Lucency of the medial navicular bone, probably due to overlying soft tissue, however there is point tenderness or history of trauma a fracture could be considered. Dictated by: Rigo Crandall M.D. on 03/25/2021 at 14:35 Approved by: Rigo Crandall M.D. on 03/25/2021 at 14:41
== END ==
PROVIDERS: PCP Family Medicine; Referring Provider Podiatrist; Visit Provider Podiatrist
DX: M20.22 Hallux rigidus, left foot (principal); M21.42 Flat foot [pes planus] (acquired), left foot; Z87.81 Personal history of (healed) traumatic fracture
CPT/HCPCS: 73630

== ENCOUNTER → 2021-12-07 09:57 | Outpatient (CLI) | payer MEDICARE, SELFPAY ==
--- NOTE | 2021-12-07 09:58 | DI.RAD.S_ITS ---
PROCEDURE: XR LUMBAR SPINE MIN 4V INDICATIONS: BACK PAIN TECHNIQUE: 5 views of the lumbar spine acquired, including flexion and extension views. COMPARISON: [facility], CR, XR LUMBAR SPINE MIN 4V, 11/20/2019, 11:24. FINDINGS: Bones: 5 nonrib-bearing vertebrae are present. There is normal bony alignment. No vertebral body compression fractures. No suspicious bony lesions. Cannulated fixation screws redemonstrated crossing the right sacroiliac joint. Mild levo curvature centered at the L3 level. Multilevel grade 1 retrolisthesis similar prior examination. Multilevel disc degeneration, most notably severe at the L5-S1 level. Moderate L4-L5 and L5-S1 facet joint arthropathy. Oblique views demonstrate no pars interarticularis defect. Soft tissues: No acute soft tissue abnormalities. IMPRESSION: 1. Multilevel disc degeneration redemonstrated, most notably and severe at the L5-S1 level. 2. Moderate L4-L5 and L5-S1 facet joint arthropathy. 3. Multilevel grade 1 retrolisthesis similar prior examination. Dictated by: Garcia Butler [facility] Interpreted: Antonio Isabel MD on 12/07/2021 at 10:29 Transcribed by: NOREEN on 12/07/2021 at 10:32 Approved by: Antonio Isabel M.D. on 12/07/2021 at 11:35
== END ==
PROVIDERS: PCP Family Medicine; Referring Provider Physical Medicine & Rehabilitation; Visit Provider Physical Medicine & Rehabilitation
DX: M47.816 Spondylosis without myelopathy or radiculopathy, lumbar region (principal); M47.817 Spondylosis without myelopathy or radiculopathy, lumbosacral region; M51.36 Other intervertebral disc degeneration, lumbar region; M51.37 Other intervertebral disc degeneration, lumbosacral region; M43.16 Spondylolisthesis, lumbar region; G47.33 Obstructive sleep apnea (adult) (pediatric); M51.27 Other intervertebral disc displacement, lumbosacral region; M43.28 Fusion of spine, sacral and sacrococcygeal region; Z86.59 Personal history of other mental and behavioral disorders; Z98.1 Arthrodesis status
CPT/HCPCS: 72110; 99214

== ENCOUNTER → 2021-12-21 13:43 | Outpatient (CLI) | payer MEDICARE, SELFPAY ==
--- NOTE | 2021-12-21 13:45 | DI.MRI.S_ITS ---
PROCEDURE: MR LUMBAR SPINE WO CON INDICATIONS: Status post right SI joint fusion ongoing symptoms TECHNIQUE: Noncontrast sagittal T1 spin echo and T2 fast echo, sagittal STIR, axial T1 and T2 fast spin echo through the lumbar spine. In cases with scoliosis, additional coronal T2 fast spin echo may be performed. COMPARISON: [facility], MR, MR LUMBAR SPINE WO CON, 08/14/2018, 9:31. FINDINGS: Image quality: Excellent. Alignment and Curvature: There is normal bony alignment. Bone Marrow: Marrow is of normal overall signal. No acute vertebral body compression fractures. Left SI joint arthrodesis instrumented noted. Spinal Cord: Conus medullaris terminates at the L1 level. Visualized cord demonstrates normal signal and size. Paraspinous Soft Tissues: No paravertebral masses. T12-L1: Disc space narrowing with circumferential disc bulge results in mild central stenosis. Mild bilateral foraminal stenosis L1-L2: Disc space narrowing with circumferential disc bulge and hypertrophic facet joints also results in mild central stenosis and moderate bilateral foraminal stenosis L2-L3: Disc space narrowing with circumferential disc bulge and hypertrophic facet joints noted. High-intensity zone in the posterior annulus reflecting annular fissure or tear. Moderate central and moderate left foraminal stenosis. Mild right foraminal stenosis. L3-L4: A disc space narrowing and circumferential disc bulge with hypertrophic facet joints results in mild central stenosis. Severe bilateral foraminal stenosis L4-L5: Disc height is relatively preserved. There are hypertrophic facet joints with fragmentation present with mild circumferential disc bulge resulting in moderate central stenosis. No significant foraminal stenosis L5-S1: Disc space narrowing with circumferential disc bulge present. The left subarticular disc protrusion filling the left lateral recess as well. Moderate central stenosis IMPRESSION: Multilevel degenerative disc disease and arthropathy results in varying degrees of central and foraminal stenosis including moderate central stenosis at L2-3 and L5-S1. Left subarticular disc protrusion fills the left lateral recess at L5-S1 Approved by: James Thompson M.D. on 12/21/2021 at 16:25
== END ==
PROVIDERS: PCP Family Medicine; Referring Provider Physical Medicine & Rehabilitation; Visit Provider Physical Medicine & Rehabilitation
DX: M47.817 Spondylosis without myelopathy or radiculopathy, lumbosacral region (principal); M47.816 Spondylosis without myelopathy or radiculopathy, lumbar region; M51.36 Other intervertebral disc degeneration, lumbar region; M51.27 Other intervertebral disc displacement, lumbosacral region; M48.061 Spinal stenosis, lumbar region without neurogenic claudication; M48.07 Spinal stenosis, lumbosacral region
CPT/HCPCS: 72148

== ENCOUNTER → 2022-01-12 13:13 | Outpatient (CLI) | payer MEDICARE, SELFPAY ==
[2022-01-12 14:38] LABS: COVID19 -Nasal RAPID Negative (Negative)
== END ==
PROVIDERS: PCP Family Medicine; Visit Provider Physical Medicine & Rehabilitation
DX: Z20.822 Contact with and (suspected) exposure to COVID-19 (principal)
CPT/HCPCS: 87635; C9803

== ENCOUNTER 2022-01-14 13:39 | Outpatient (CLI) | payer MEDICARE, SELFPAY ==
--- NOTE | 2022-01-14 13:40 | DI.RAD.S_ITS ---
PROCEDURE: PAIN L INTERLAMINAR/CAUDAL INJ INDICATIONS: SPONDYLOSIS COMPARISON: [facility], MR, MR LUMBAR SPINE WO CON, 12/21/2021, 13:49. [facility], CR, XR LUMBAR SPINE MIN 4V, 12/07/2021, 10:03. FINDINGS: Fluoroscopic spot filming was performed to verify placement of spinal needles at the L5-S1 level(s), as labeled on the films. Appropriate location(s) of the needle tip(s) was confirmed by injection of iodinated contrast. IMPRESSION: Fluoroscopy for pain management. Dictated by: Keri Rosales M.D. on 01/14/2022 at 15:29 Approved by: Keri Rosales M.D. on 01/14/2022 at 15:29
[2022-01-14 13:50] VITALS: BP 136/78; PULSE 92; RESP 18; TEMP 36.6; O2SAT 97
--- NOTE | 2022-01-14 13:59 | PC.NURSE ---
Declining sedation and IV.
[2022-01-14 14:28] VITALS: BP 127/75; PULSE 88; RESP 12; O2SAT 96
[2022-01-14 14:33] VITALS: BP 138/67; PULSE 85; RESP 16; O2SAT 96
[2022-01-14] MEDS: IOPAMIDOL 15 ML VIAL 3 ML INJ (14:33)
[2022-01-14] MEDS: BETAMETHASONE 30 MG/5 ML MDV 6 MG INJ (14:34)
[2022-01-14] MEDS: DEXAMETHASONE 10 MG/ML VIAL 20 MG INJ (14:34)
[2022-01-14] MEDS: BUPIVACAINE 0.25% (PF) VIAL 2 ML INJ (14:34)
[2022-01-14 14:36] VITALS: BP 140/63; PULSE 85; RESP 15; O2SAT 96
--- NOTE | 2022-01-14 14:42 | P.PCN_ITS ---
Date/Time/Diagnoses Date of procedure: 01/14/22 Time of procedure: 14:42 Pre-procedure diagnosis: 1. HNP WITH RADICULAR FEATURES, 2. MULTILEVEL CENTRAL STENOSIS, Post-procedure diagnosis: same Procedure Notes Procedure: 1. FLUOROSCOPICALLY GUIDED CONTRAST CONTROLLED INTERLAMINAR EPIDURAL STEROID INJECTION - L5/S1 Indications: Vinnie is referred by Dr. Gonzalez for treatment of Bilateral Foraminal Stenosis L>R LE symptoms. Physician: Carlos A Awad Total Fluoroscopy time (seconds): 7 Total sedation minutes: 0 Complications: none Procedure in detail & Post-procedure care: FINDINGS Multilevel Central Spinal Stenosis with Nerve Root Compression DESCRIPTION OF PROCEDURE Fluoroscopically guided, contrast-controlled L5/S1 translaminar epidural steroid injection. Following review of allergy and review of potential side effects and complications, including, but not necessarily limited to, infection, allergic reaction, local tissue breakdown, temporary as well as permanent nerve injury, paralysis, stroke and possible , the patient indicated that the patient understood and agreed to proceed. An informed consent document was signed by the patient, witnessed by a nurse, and placed in the patient's chart. Additionally, other treatment options including modalities, medications, and physical therapy were reviewed with the patient. After review of previous anaesthesic history and IV conscious sedation the patient was deemed safe to proceed with today?s procedure with IV conscious sedation as ASA class II designation. Safety time-out was performed to confirm patient ID, procedure to be performed and site of procedure. IV sedation was deemed unnecessary and thus not administered by the RN after DO order, titrated to patient comfort during the course of the procedure while the patient remained responsive to all verbal commands. In the prone position, following sterile prep and drape of the lumbar region, the L5/S1 translaminar space was identified fluoroscopically. The skin was anesthetized via a 25-gauge, 1.5-inch needle with 1% lidocaine solution. At this point, a 22-gauge short bevel spinal needle was atraumatically introduced and advanced under fluoroscopic guidance into the region of the L5/S1 translaminar space. Depth was confirmed on lateral view. Radiological data, including multiple fluoroscopic views of the lumbar spine, reveal a spinal needle at the L5/S1 translaminar space. Lateral views then show placement of the needle in the epidural space. Subsequent views show contrast material flowing superiorly and inferiorly in the epidural space. No vascular or intrathecal uptake is observed. At this point, using loss of resistance technique with saline and air, the epidural space was entered. This was confirmed following negative aspiration with injection of approximately 1.5cc of Isovue 200, showing excellent epidural flow without vascular or intrathecal uptake. At this point, 1 cc of 1% lidocaine solution combined with 3cc or 20mg of dexamethasone and 6mg of betamethasone was injected without incident. The patent tolerated the procedure without signs of symptoms of complications prior to transfer to the recovery area for further monitoring. The patient was then transferred to the recovery area where they were observed for an appropriate period of time after the injection. The patient reported a VAS sco re of 6 prior to the procedure and a post-procedure VAS of 0. POST OP INSTRUCTIONS The patient was provided a Pain Log to continue to record their response to the target-specific procedure prior to follow-up visit with their referring physician. Additionally, specific post-injection care instructions and a contact number to our office were provided if concerns arise regarding possible complications associated with the procedure are suspected.
[2022-01-14 14:45] VITALS: BP 125/59; PULSE 86; RESP 14; O2SAT 95
[2022-01-14 14:47] VITALS: BP 130/67; PULSE 84; RESP 18; O2SAT 94
== END 2022-01-14 14:57 | disposition home or self-care (01) ==
PROVIDERS: PCP Family Medicine; Referring Provider Physical Medicine & Rehabilitation; Visit Provider Physical Medicine & Rehabilitation
DX: M51.17 Intervertebral disc disorders with radiculopathy, lumbosacral region (principal); M48.07 Spinal stenosis, lumbosacral region
CPT/HCPCS: 62323; J0702; J1100

== ENCOUNTER → 2023-03-02 12:36 | Outpatient (CLI) | payer MEDICARE, SELFPAY ==
--- NOTE | 2023-03-02 12:37 | DI.RAD.S_ITS ---
PROCEDURE: XR CHEST 2V INDICATIONS: Cough TECHNIQUE: 2 views of the chest were acquired. COMPARISON: [facility], , CHEST 2 VIEW, 11/22/2017, 9:46. FINDINGS: Surgical changes and devices: None. Lungs and pleura: Lungs are mildly hyperinflated with flattening of the diaphragms. Horizontal strandy opacity at the left lung base and minimally at the right costophrenic sulcus. No pleural effusions or pneumothorax. Mediastinum: Mediastinal contours are normal. Heart size is normal. Bones and chest wall: Flowing anterior osteophytes in the mid and lower thoracic spine. Remote, healed rib fractures. IMPRESSION: 1. Horizontal bibasilar opacities may be secondary to lingular and right middle lobe infiltrates or atelectasis. Underlying infection may be present. Consider atypical infections such as SENDY. 2. Mild hyperinflation may indicate early COPD. Dictated by: Teresita Jorge M.D. on 03/02/2023 at 14:48 Approved by: Teresita Jorge M.D. on 03/02/2023 at 14:50
== END ==
PROVIDERS: PCP Family Medicine; Referring Provider Nurse Practitioner Family; Visit Provider Nurse Practitioner Family
DX: R05.9 Cough, unspecified (principal)
CPT/HCPCS: 71046

== ENCOUNTER → 2023-03-24 12:15 | Outpatient (CLI) | payer MEDICARE, SELFPAY ==
--- NOTE | 2023-03-24 | DI.RAD.S_ITS ---
PROCEDURE: XR CHEST 2V INDICATIONS: BACTERIAL PNEUMONIA TECHNIQUE: 2 views of the chest were acquired. COMPARISON: [facility], CR, XR CHEST 2V, 03/02/2023, 12:45. FINDINGS: Surgical changes and devices: None. Lungs and pleura: No significant change. Probable COPD. Bibasilar opacities may represent linear atelectasis versus scarring. No pleural effusions or pneumothorax. Mediastinum: Mediastinal contours are normal. Heart size is normal. Bones and chest wall: No suspicious bony abnormalities. Soft tissues appear unremarkable. IMPRESSION: Stable findings. Probable COPD. Bibasilar atelectasis versus scarring. Dictated by: Diego Hernandez M.D. on 03/24/2023 at 13:39 Approved by: Diego Hernandez M.D. on 03/24/2023 at 13:47
== END ==
PROVIDERS: PCP Family Medicine; Referring Provider Family Medicine; Visit Provider Family Medicine
DX: J15.9 Unspecified bacterial pneumonia (principal)
CPT/HCPCS: 71046

== ENCOUNTER 2023-06-21 20:15 | Emergency (ER) | payer MEDICARE, SELFPAY ==
[2023-06-21 20:22] VITALS: BP 141/72; PULSE 83; RESP 18; TEMP 36.7; O2SAT 95; BMI 34.5
--- NOTE | 2023-06-21 20:48 | DI.CT.S_ITS ---
PROCEDURE: CT HEAD/BRAIN WO CON INDICATIONS: driving slow TECHNIQUE: Noncontrast 4.5 mm thick angled axial sections acquired from the foramen magnum to the vertex, with coronal and sagittal reformats. For radiation dose reduction, the following was used: automated exposure control, adjustment of mA and/or kV according to patient size. COMPARISON: None. FINDINGS: Image quality: Excellent. CSF spaces: Basal cisterns are patent. No extra-axial fluid collections. The ventricles are symmetric in size and shape. Brain: No intracranial hemorrhage, mass, or mass effect. There are subcortical, periventricular and deep white matter hypodensities consistent with moderate chronic small vessel ischemic changes. The mackey-white matter junction appears preserved. There is intracranial internal carotid artery atherosclerosis. Skull and face: Calvarium and visualized facial bones appear intact, without suspicious lesions. Sinuses: Visualized sinuses and mastoids are clear. IMPRESSION: 1. No acute intracranial abnormality. 2. Moderate chronic white matter small vessel ischemic changes. Dictated by: Asael Jordan M.D. on 06/21/2023 at 22:22 Approved by: Asael Jordan M.D. on 06/21/2023 at 22:23
--- NOTE | 2023-06-21 21:06 | DI.RAD.S_ITS ---
PROCEDURE: XR CHEST 1V INDICATIONS: chest pain TECHNIQUE: One view of the chest was acquired. COMPARISON: [facility], CR, XR CHEST 2V, 03/24/2023, 12:16. FINDINGS: Surgical changes and devices: None. Lungs and pleura: There is hyperinflation of the lungs with flattening of the hemidiaphragms compatible with COPD. There are linear opacities in the lung bases consistent with atelectasis or scarring. No acute consolidation. No pleural effusions or pneumothorax. Mediastinum: Mediastinal contours appear normal. Heart size is normal. Bones and chest wall: No suspicious bony lesions. Overlying soft tissues appear unremarkable. IMPRESSION: 1. No definite acute cardiopulmonary disease. 2. Findings compatible with COPD redemonstrated. 3. Linear atelectasis and scarring in the lung bases. Dictated by: Asael Jordan M.D. on 06/21/2023 at 23:16 Approved by: Asael Jordan M.D. on 06/21/2023 at 23:17
--- NOTE | 2023-06-21 21:15 | PC.NURSE ---
Pt remains alert and oriented. States Maybe it's because I took some old CBD oil today. Maybe I took to much. Pt agreed to blood draw by lab, then refused once she was in the room. Explained reasoning for provider ordering head CT/EKG/x ray/lab work. Pt continues to be intermittent with wanting any interventions done. Verbalized to family I just want to go home.
[2023-06-21 21:54] LABS: Appearance Urine UA CLEAR; Bilirubin Urine UA NEGATIVE (NEGATIVE); Color Urine UA YELLOW; Glucose Urine UA 1+ g/dL (Negative); Ketones Urine UA NEGATIVE (NEGATIVE); Leukocyte Esterase Urine UA NEGATIVE (NEGATIVE); Nitrite Urine UA NEGATIVE (Negative); Occult Blood Urine UA NEGATIVE (Negative); Protein Urine UA TRACE (Negative); Urobilinogen Urine UA 0.2 E.U./dL (0.2); pH Urine UA 6.5 (4.5-8.0)
[2023-06-21 22:03] LABS: Ur Creatinine Normal (Normal); Ur Specific Gravity Normal (Normal); Urine pH Normal (Normal)
[2023-06-21 22:04] LABS: UR Morphine/Opiate cutoff 300 Positive (Negative); Urine Amphetamines Negative (Negative); Urine Barbiturates Negative (Negative); Urine Benzodiazepines Negative (Negative); Urine Cocaine Negative (Negative); Urine MDMA Negative (Negative); Urine Methadone Negative (Negative); Urine Methamphetamines Negative (Negative); Urine Oxycodone Positive (Negative); Urine Phencyclidine Negative (Negative); Urine Tetrahydrocannabinol Positive (Negative); Urine Tricyclic Antidepressant Negative (Negative)
[2023-06-21 22:07] LABS: RBC Urine 0-1/HPF (0-5/HPF)
[2023-06-21 22:08] LABS: Bacteria Urine None Seen; Culture Indicated Urine Cult Not Indicated; Mucus Urine 1+ (Negative); Squamous Epithelial Cell Urine 0-1 /HPF (0-5/HPF); WBC Urine 0-1/HPF (0-5/HPF)
--- NOTE | 2023-06-21 22:26 | ED.AMS ---
HPI - Altered Mental Status General Chief Complaint: Weakness Stated Complaint: states dehydrated Time Seen by Provider: 06/21/23 21:57 Source: patient Mode of arrival: Wheelchair History of Present Illness HPI narrative: Patient 72-year-old male history of chronic back pain, takes morphine and oxycodone presents today with altered mental status per family. He usually sleeps until 10:00 a.m. however he was up early today he was out doing some errands he took his morphine but forgot the oxycodone. He found to CBD syringe in his car but the oil had dried up and was hard. He went to [employer] got some boiling water were he Ang the oil and then push the entire syringe into his mouth. He was ultimately pulled over by police for slow and erratic driving. He was brought to the ED for evaluation by his family. He initially seemed altered to nursing but fast was negative and no facial droop. No after waiting multiple hours in the ED he is able to give me a full history. He is no numbness tingling or weakness. He has been refusing lab work and needlestick despite multiple attempts. He was agreeable to EKG head CT and urinalysis. Related Data Home Medications Medication Instructions Recorded Confirmed Respironics Dreamstation CPAP #1 ea 03/05/19 03/02/23 morphine 10 mg capsule,extended 10 mg PO DAILY 04/02/20 03/02/23 release pellets oxycodone-acetaminophen 10 mg-325 1 tab PO QID PRN 04/02/20 03/02/23 mg tablet Previous Rx's Medication Instructions Recorded gabapentin 600 mg tablet 600 mg PO TID #180 tabs 12/05/18 diazepam 10 mg tablet (Valium) 10 mg PO .COMPLEX PRN 1-2 prior to 01/12/22 MRI and for possible steroid flare #10 tabs amoxicillin 875 mg-potassium 1 tab PO BID #10 tabs 03/02/23 clavulanate 125 mg tablet azithromycin 250 mg tablet See Rx Instructions PO .COMPLEX #6 03/02/23 tabs benzonatate 100 mg capsule 100 mg PO BID PRN cough #20 caps 03/02/23 dextromethorphan HBr 15 mg tablet 15 mg PO Q8H PRN cough #20 tabs 03/02/23 (Delsym Cough) fluticasone propionate 50 1 spray intranasal Q12H #16 grams 03/02/23 mcg/actuation nasal spray,suspension (Flonase Allergy Relief) Allergies Allergy/AdvReac Type Severity Reaction Status Date / Time No Known Drug Allergies Allergy Verified 03/02/23 12:23 Review of Systems Review of Systems ROS Unobtainable: All systems reviewed & are unremarkable except as noted in HPI and below Patient History Medical History Cellulitis Chronic post-traumatic stress disorder (PTSD) after combat Depression with anxiety Hypertension Obesity Obstructive sleep apnea syndrome Osteoarthritis Primary insomnia Right knee DJD Snoring Surgical History Chronic right SI joint pain Social History Smoking Status: Current every day smoker alcohol intake: current Smoking Status: Current every day smoker tobacco type: cigarettes Substance Use Type: does not use Exam Initial Vital Signs Initial Vital Signs: Vital Signs Temperature 98.1 F 06/21/23 20:22 Pulse Rate 83 06/21/23 20:22 Respiratory Rate 18 06/21/23 20:22 Blood Pressure 141/72 H 06/21/23 20:22 Pulse Oximetry 95 06/21/23 20:22 Oxygen Delivery Method Room Air 06/21/23 20:22 GENERAL: Alert 72-year-old male and in no acute distress. HEENT: Head atraumatic,EOMI, pupils reactive, face symmetric, moist mucous membranes CARDIOVASCULAR: Regular rate and rhythm without murmurs, rubs or gallops. RESPIRATORY: Breath sounds equal bilaterally, no wheezes rales or rhonchi. ABDOMEN: Soft, nontender. Normoactive bowel sounds all 4 quadrants. No guarding or rebound. EXTREMITIES: Normal range of motion, no clubbing or edema. Neurovascularly intact NEUROLOGICAL: Alert and oriented x4.Normal gait and speech. Cranial nerves II through XII grossly intact. Good [id number], good [id number], strength equal bilaterally, no dysarthria or aphasia, sensation in tact to soft touch bilaterally, no visual changes, no facial droop SKIN: Warm, dry, no laceration, no petechiae, no rashes or lesions. Scores NIH Stroke Scale Level of Conciousness: Alert, keenly responsive Ask month/age: Answers both questions correctly. Open/close eyes, close hand: Performs both tasks correctly Best gaze horizontal: Normal Visual miles: No visual loss Facial palsy: Normal symetrical movement Left arm drift: No drift for full 10 sec Right arm drift: No drift for full 10 sec Left leg drift: No drift for full 5 sec Right leg drift: No drift for full 5 sec Limb ataxia: Absent Sensory on face/arms/legs: Normal, no sensory loss Best language: No aphasia, normal Dysarthria: Normal Extinction or inattention: No abnormality Total NIH Stroke scale score: 0 Course Orders Ordered: ED Orders 06/21/23 21:06 XR chest 1V Stat EKG-12 Lead Stat Vital Signs Vital signs: Vital Signs - 8 hr 06/21/23 20:22 Temperature 98.1 F Pulse Rate 83 Respiratory Rate 18 Blood Pressure 141/72 H Pulse Oximetry 95 Oxygen Delivery Method Room Air MDM - Altered Mental Status Lab Data Labs: Lab Results 06/21/23 06/21/23 Range/Units 20:30 20:30 Urine Color Yellow Urine Appearance Clear Urine pH 6.5 (4.5-8.0) Ur Specific [place] 1.020 (1.000-1.035) Urine Protein Trace H (Negative) Urine Glucose (UA) 1+ H (Negative) g/dL Urine Ketones Negative (NEGATIVE) Urine Occult Blood Negative (Negative) Urine Nitrate Negative (Negative) Urine Bilirubin Negative (NEGATIVE) Urine Urobilinogen 0.2 (0.2) E.U./dL Ur Leukocyte Esterase Negative (NEGATIVE) Urine RBC 0-1/hpf (0-5/HPF) Urine WBC 0-1/hpf (0-5/HPF) Ur Squamous Epith Cells 0-1 /hpf (0-5/HPF) Urine Bacteria None seen (None) Urine Mucus 1+ H (Negative) Ur Culture Indicated? Cult not indicated U Opiates 300ng/mL cut Positive H (Negative) Ur Oxycodone Screen Positive H (Negative) Urine Methadone Screen Negative (Negative) Ur Barbiturates Screen Negative (Negative) U Tricyclic Antidepress Negative (Negative) Ur Phencyclidine Scrn Negative (Negative) Ur Amphetamines Screen Negative (Negative) U Methamphetamines Scrn Negative (Negative) Ur MDMA Scrn (Ecstasy) Negative (Negative) U Benzodiazepines Scrn Negative (Negative) Urine Cocaine Screen Negative (Negative) U Marijuana (THC) Screen Positive H (Negative) Imaging Data CT scan - head: Radiologist's Impression: PROCEDURE:? CT HEAD/BRAIN WO CON ? INDICATIONS:? driving slow ? TECHNIQUE:? Noncontrast 4.5 mm thick angled axial sections acquired from the foramen magnum to the vertex, with coronal and sagittal reformats.? For radiation dose reduction, the following was used:? automated exposure control, adjustment of mA and/or kV according to patient size.? ? COMPARISON:? None. ? FINDINGS:? Image quality:? Excellent.? ? CSF spaces:? Basal cisterns are patent.? No extra-axial fluid collections.? The ventricles are symmetric in size and shape.? ? Brain:? No intracranial hemorrhage, mass, or mass effect.? There are subcortical, periventricular and deep white matter hypodensities consistent with moderate chronic small vessel ischemic changes.? The mackey-white matter junction appears preserved.? There is intracranial internal carotid artery atherosclerosis.? ? Skull and face:? Calvarium and visualized facial bones appear intact, without suspicious lesions.? ? Sinuses:? Visualized sinuses and mastoids are clear.? ? IMPRESSION:? ? 1. No acute intracranial abnormality. ? 2. Moderate chronic white matter small vessel ischemic changes. ? ? Dictated by: Asael Jordan M.D. on 06/21/2023 at 22:22 ? ? Approved by: Asael Jordan M.D. on 06/21/2023 at 22:23 ? ECG Data Interpretation: Sinus rhythm rate 76 DC interval 184 QRS [address] changes T-wave inversions no priors to compare slightly low voltage. MDM Narrative Medical decision making narrative: Patient is 72-year-old male presents today with altered mental status. Mental status has cleared will being in the ED. He has NIH stroke scale of 0. I suspect his altered mental status is secondary to polysubstance use. Drug screen positive for marijuana and opiates. This correlates with his history. He has a negative head CT negative chest x-ray EKG. Continues to refuse IV blood work. Mental status is clearing would like to go home. I think that this is reasonable. He reports that he may be dehydrated I encouraged him to have blood work checked to have his creatinine checked however he declines. Discharge Plan Departure Patient Disposition: Home Clinical Impression: Marijuana intoxication Instructions: Medical Marijuana Activity Restrictions/Additional Instructions: *You have been diagnosed with marijuana intoxication *What to do: I think your slow mental status today was due to your pain medication and marijuana. Do not use drugs do not drive on drugs Please go home to drink and stay hydrated. *Continue to take medications as directed *Follow up with your primary care provider in 2-3 days or call [phone] *Return to ER if you should have increasing confusion or any new, worsening or concerning symptoms Prescriptions: No Action fluticasone propionate [Flonase Allergy Relief] 50 mcg/actuation spray,suspension 1 spray intranasal Q12H Qty: 16 0RF Rx Instructions: administer into each nostril benzonatate 100 mg capsule 100 mg PO BID PRN (Reason: cough) Qty: 20 0RF Delsym Cough 15 mg tablet 15 mg PO Q8H PRN (Reason: cough) Qty: 20 0RF azithromycin 250 mg tablet See Rx Instructions PO .COMPLEX Qty: 6 0RF Rx Instructions: For 250 mg dose pack: take 500 mg today (day 1), then 250 mg for 4 days (days 2-5) PO amoxicillin-pot clavulanate 875-125 mg tablet 1 tab PO BID Qty: 10 0RF gabapentin 600 mg tablet 600 mg PO TID Qty: 180 2RF diazepam [Valium] 10 mg tablet 10 mg PO .COMPLEX MDD 3 tabs PRN (Reason: 1-2 prior to MRI and for possible steroid flare) Qty: 10 0RF Rx Instructions: 10 mg PO PRN; oxycodone-acetaminophen 10-325 mg tablet 1 tab PO QID PRN morphine 10 mg capsule,extend.release pellets 10 mg PO DAILY (DME) Respironics Dreamstation CPAP Qty: 1 Dose Instruction: As directed Patient Comments: Pressure: 14-18 cmH2O DME: [facility] Rx Instructions: As directed Referrals: Carlos A Gonzalez MD [Primary Care Provider] - Stand Alone Forms: Patient Portal/API
== END 2023-06-21 23:04 | disposition home or self-care (01) ==
PROVIDERS: Emergency Provider Emergency Medicine; PCP Family Medicine
DX: F12.929 Cannabis use, unspecified with intoxication, unspecified (principal); R07.9 Chest pain, unspecified
CPT/HCPCS: 70450; 71045; 80305; 81001; 93005; 93010; 99281; 99284

== ENCOUNTER 2024-03-15 06:52 | Day surgery (SDC) | payer MEDICARE, SELFPAY ==
[2024-03-15 07:39] VITALS: BP 147/80; PULSE 75; RESP 20; TEMP 36.6; O2SAT 92
[2024-03-15] MEDS: LACTATED RINGERS 1,000 ML 42 ML IV (07:40)
--- NOTE | 2024-03-15 07:52 | PM.HP.1 ---
History of Present Illness History of Present Illness Date Patient Seen: 03/15/24 Time Patient Seen: 07:56 Chief complaint: Colonoscopy Narrative: History of colon polyps yet he states he is on the 10 yr plan. Family history unremarkable, no syptoms. [facility] Medical History Stye Cellulitis Right knee DJD Chronic post-traumatic stress disorder (PTSD) after combat Osteoarthritis Depression with anxiety Hypertension Primary insomnia Snoring Obstructive sleep apnea syndrome Obesity Surgical History Chronic right SI joint pain Social History marital status: number of children: 3 household members: spouse ([place]) lives independently: Yes housing: house occupational status: other (retired) Previous occupational history: Heavy petroleum refining equipment operator at [employer] Smoking Status: Current every day smoker Tobacco: How many years used: 40 Smokeless tobacco user: snuff ([place]) alcohol intake: former substance use type: does not use Meds Home Medications and Allergies Home Medications Medication Instructions Recorded Confirmed Type Respironics Dreamstation CPAP #1 ea 03/05/19 12/21/23 History oxycodone-acetaminophen 10 mg-325 1 tab PO QID PRN Pain (Scale Score 04/02/20 03/15/24 History mg tablet 1-3) morphine 15 mg tablet,extended 15 mg PO DAILY 08/12/23 03/15/24 History release morphine 30 mg tablet,extended 30 mg PO Q12H 08/12/23 03/15/24 History release mirtazapine 30 mg tablet 30 mg PO ONCE PM 11/22/23 03/15/24 History zolpidem 10 mg tablet 10 mg PO ONCE PM PRN Abdominal 11/22/23 03/15/24 History Discomfort meloxicam 7.5 mg/5 mL oral 7.5 mg PO DAILY 11/23/23 03/15/24 History suspension amlodipine 5 mg tablet 5 mg PO DAILY #90 tabs 01/31/24 03/15/24 Rx duloxetine 20 mg capsule,delayed 60 mg (3 x 20 mg) PO DAILY #270 01/31/24 03/15/24 Rx release caps gabapentin 300 mg capsule 900 mg (3 x 300 mg) PO 3XD #810 01/31/24 03/15/24 Rx caps bupropion HCl 150 mg 24 hr tablet, 150 mg PO QAM #30 tabs 02/21/24 03/15/24 Rx extended release Allergies Allergy/AdvReac Type Severity Reaction Status Date / Time No Known Drug Allergies Allergy Verified 03/15/24 07:22 Review of Systems Review of Systems ROS: Yes All systems reviewed with the patient and are negative except as otherwise documented Exam Vital Signs (past 8 hours): - 03/15/24 07:39 Temperature 98 F Pulse Rate 75 Respiratory Rate 20 Blood Pressure 147/80 H Pulse Oximetry 92 Oxygen Delivery Method Room Air Oxygen Delivery Method Room Air Const General: cooperative Nutritional Appearance: overweight HENMT Head: normocephalic and atraumatic Eyes Conjunctivae: conjunctivae normal Neck Neck: no meningeal signs and trachea midline Resp Effort & Inspection: normal respiratory effort and able to speak in complete sentences Cardio Rate: regular rate Rhythm: regular rhythm GI Inspection: obesity Palpation: soft Skin General: atrophy and dry skin Neuro General: patient alert, patient awake and patient oriented x3 Psych Appearance: grossly normal Mental Status: mental status grossly normal Affect: irritable affect Judgment: judgment good Assessment & Plan Assessment & Plan narrative: colon cancer screening using colonoscopy with anesthesia Time Spent With Patient Time with patient: less than 30 minutes
--- NOTE | 2024-03-15 08:50 | PM.OP.COLON ---
Operative Date/Time/Diagnoses Date of procedure: 03/15/24 Time of procedure: 08:50 Pre-op diagnosis: Colonoscopy for colon cancer screening Post-op diagnosis: same Procedure & Clinicians Study performed: Colonoscopy with anesthesia Same procedure as scheduled: Yes Indications: Colon cancer screening Surgeon: Effie Brown Procedure Notes Procedure in detail: Preop diagnosis: Colon cancer screening Postop diagnosis: Same Operative procedure: Colonoscopy with anesthesia Surgeon: Yoana Brown MD Findings: Poor bowel prep able to see the majority of the mucosa but smaller polyps could have been missed. Severe large multiple diverticulosis throughout the colon with cecal sparing. Procedure: Patient placed in lateral position. Rectal exam performed showing normal tone no masses. Colonoscope inserted into the rectum and advanced to ileocecal valve with minimal difficulty. Insufflation extraction scope and the above findings. Retroflex was included in the rectum. Impression: Poor bowel prep however mucosa could be seen in the majority of the colon clearly. Small polyps could have been overlooked. No polyps identified. Severe diverticulosis with cecal sparing Plan: Repeat colonoscopy in 10 years unless otherwise in poor health, sooner if there is change in clinical condition Findings: divertiulosis Specimen(s): none sent Complications: none Post-procedure Recommendations: Colonoscopy in 10 years Follow up: as needed Disposition: PACU
[2024-03-15 08:55] VITALS: BP 108/59; PULSE 74; RESP 16; TEMP 36.2; O2SAT 96
[2024-03-15 09:00] VITALS: BP 108/59; PULSE 78; RESP 16; O2SAT 98
[2024-03-15 09:05] VITALS: BP 145/75; PULSE 14; RESP 16; O2SAT 96
[2024-03-15 09:10] VITALS: BP 145/74; PULSE 76; RESP 15; O2SAT 95
[2024-03-15 09:16] VITALS: BP 140/74; PULSE 74; RESP 14; TEMP 36.2; O2SAT 94
== END 2024-03-15 09:18 | disposition home or self-care (01) ==
PROVIDERS: PCP Family Medicine; Referring Provider Surgery; Visit Provider Surgery
PROC: 0DJD8ZZ Inspection of Lower Intestinal Tract, Via Natural or Artificial Opening Endoscopic (ICD-10-PCS; CPT 45378; principal; 2024-03-15 07:45)
DX: Z12.11 Encounter for screening for malignant neoplasm of colon (principal); K57.30 Diverticulosis of large intestine without perforation or abscess without bleeding
CPT/HCPCS: G0121; J2704

== ENCOUNTER → 2024-06-27 16:05 | Outpatient (CLI) | payer MEDICARE, SELFPAY ==
--- NOTE | 2024-06-27 16:07 | DI.RAD.S_ITS ---
PROCEDURE: XR FOOT LT MIN 3V INDICATIONS: Old TECHNIQUE: 3 views of the foot were acquired. COMPARISON: [facility], CR, XR FOOT LT MIN 3V, 03/25/2021, 13:28. FINDINGS: Bones: Moderate pes planus noted. Prominent exostosis projects from the dorsal cortex of the distal 1st metatarsal as before. Os trigonum noted. Malunified old distal tibia and fibula diaphyseal fractures and also 2nd and 3rd di distal metatarsal fractures seen as before. 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 Soft tissues: No soft tissue abnormality. IMPRESSION: Chronic findings stable Dictated by: Don Lopez M.D. on 06/28/2024 at 13:30 Approved by: Don Lopez M.D. on 06/28/2024 at 13:33
== END ==
LOC: RAD 16:06
PROVIDERS: PCP Family Medicine; Referring Provider Podiatrist; Visit Provider Podiatrist
DX: M21.962 Unspecified acquired deformity of left lower leg (principal); M21.42 Flat foot [pes planus] (acquired), left foot; S92.322S Displaced fracture of second metatarsal bone, left foot, sequela; S92.332S Displaced fracture of third metatarsal bone, left foot, sequela; S82.302S Unspecified fracture of lower end of left tibia, sequela; S82.832S Other fracture of upper and lower end of left fibula, sequela
CPT/HCPCS: 73630

== ENCOUNTER → 2024-07-31 09:57 | Outpatient (CLI) | payer MEDICARE, SELFPAY ==
[2024-07-31 10:33] LABS: Add Manual Diff / Slide Review NO; Basophils Absolute Auto 0 /uL (0-100); Basophils Percent Auto 0.3 % (0-2); Eosinophils Absolute Auto 600 /uL (0-450); Eosinophils Percent Auto 8.4 % (2-4); Hematocrit 38.9 % (41-53); Hemoglobin 13.2 g/dL (13.5-17.5); Lymphocytes Absolute Auto 700 /uL (1100-4500); Lymphocytes Percent Auto 10.3 % (25-40); Mean Corpuscular HGB Conc 33.8 % (30-36); Mean Corpuscular Hemoglobin 30.3 PG (26-34); Mean Corpuscular Volume 89.7 fL (80-100); Monocytes Absolute Auto 600 /uL (0-900); Monocytes Percent Auto 8.1 % (3-14); Neutrophils Absolute Auto 5100 /uL (1500-7000); Neutrophils Percent Auto 72.9 % (50-75); Platelet Count 276 X10^3/uL (150-400); Red Blood Cell Count 4.34 X10^6/uL (4.5-5.9); Red Cell Distribution Width 15.6 % (11.6-14.8); White Blood Cell Count 6.9 X10^3/uL (4.5-11.0)
[2024-07-31 10:53] LABS: Alanine Aminotransferase 21 IU/L (<50); Albumin 4.2 g/dL (3.5-5.0); Albumin Globulin Ratio 1.3 (1.0-2.8); Alkaline Phosphatase 88 U/L (38-126); Aspartate Aminotransferase 26 IU/L (17-59); BUN Creatinine Ratio 24.5 (6-22); Bilirubin Total 0.5 mg/dL (0.2-1.3); Blood Urea Nitrogen 23 mg/dL (9-20); Calcium 9.4 mg/dL (8.4-10.2); Carbon Dioxide 30 mmol/L (22-32); Chloride 100 mmol/L (98-107); Cholesterol 168 mg/dL (140-199); Estimated Glomerular Filt Rate > 60 mL/min (>60); Globulin 3.3 g/dL (1.7-4.1); Glucose 101 mg/dL (80-110); HDL Cholesterol 48 mg/dL (40-60); HEMOLYSIS < 15 (0-50); LDL Cholesterol Calculated 90 mg/dL (<100); Potassium 4.2 mmol/L (3.4-5.1); Sodium 137 mmol/L (137-145); Total Protein 7.5 g/dL (6.3-8.2); Triglycerides 151 mg/dL (35-150)
[2024-07-31 11:09] LABS: Creatinine Urine Random 76.26 mg/dL
[2024-07-31 11:14] LABS: Microalbumin Urine Random 1.6 mg/dL (0-1.6)
[2024-07-31 11:41] LABS: Hep C Virus Ab w/Reflex Quant NEGATIVE s/c (NEGATIVE)
== END ==
LOC: LAB 09:58
PROVIDERS: PCP Family Medicine; Referring Provider Family Medicine; Visit Provider Family Medicine
DX: I10 Essential (primary) hypertension (principal); E66.9 Obesity, unspecified; Z11.59 Encounter for screening for other viral diseases
CPT/HCPCS: 36415; 80053; 80061; 82043; 82570; 85025; 86803

== ENCOUNTER → 2024-11-21 11:51 | Outpatient (CLI) | payer MEDICARE, SELFPAY ==
--- NOTE | 2024-11-21 11:53 | DI.MRI.S_ITS ---
PROCEDURE: MR LUMBAR SPINE WO CON INDICATIONS: unresolved back pain TECHNIQUE: Noncontrast sagittal T1 spin echo and T2 fast echo, sagittal STIR, and T2 fast spin echo through the lumbar spine. In cases with scoliosis, additional coronal T2 fast spin echo may be performed. In this patient, additional oblique coronal and oblique sagittal T1 weighted and STIR images were obtained through the sacrum. COMPARISON: [facility], CR, XR LUMBAR SPINE WITH OBLIQUES PLUS FLEXION EXTENSION, 06/04/2024, 9:09. [facility], , MR LUMBAR SPINE WO CON, 12/21/2021, 13:49. (Additional prior imaging is not available for review from the archive at the time of this dictation.) FINDINGS: Image quality: There is artifact associated with the metallic hardware. This examination is limited by involuntary motion artifact. Alignment and Curvature: There is minimal retrolisthesis seen at T12-L1 and at L1-L2. Bone Marrow: Marrow is of normal overall signal. No acute vertebral body compression fractures. Spinal Cord: Conus medullaris terminates at the L1 level. Visualized cord demonstrates normal signal and size. Paraspinous Soft Tissues: No paravertebral masses. T12-L1: Moderate loss of disc height is seen. Loss of disc signal is seen. Mild to moderate disc bulge is seen, which is eccentric to the right. Mild facet joint hypertrophy is seen. There is at least moderate bilateral neural foraminal narrowing seen. Mild to moderate central canal narrowing is seen. These imaging findings have progressed compared to the prior study. L1-L2: The disc height is well-preserved. Loss of disc signal is seen at this level. Moderate generalized disc bulge is seen. There is a superimposed central disc protrusion. Mild facet joint hypertrophy is seen. There is at least moderate bilateral neural foraminal narrowing, right worse than left. Moderate central canal narrowing is seen. There is mild progression compared to 2021. L2-L3: Mild loss of disc height is seen. Loss of disc signal is seen. Moderate generalized disc bulge is seen. There is a superimposed central disc protrusion. There is a focal annular fissure seen posteriorly. There is at least moderate facet hypertrophy seen. Associated hypertrophy of the ligamentum flavum can be seen. There is moderate to severe bilateral neural foraminal narrowing seen, with an associated degree of compression seen upon the exiting nerve roots. Moderate to severe central canal narrowing is seen, as on series 7, image 16. These degenerative changes are worse than in 2022. L3-L4: Moderate loss of disc height is seen. Loss of disc signal is seen. Moderate generalized disc bulge is seen. Moderate facet joint hypertrophy is seen. There is moderate to severe bilateral neural foraminal narrowing seen, with an associated degree of compression seen upon the exiting nerve roots. Moderate central canal narrowing is seen. There is slight progression compared to 2022. L4-L5: The disc height and disk signal are relatively well-preserved. Moderate generalized disc bulge is seen. At least moderate facet hypertrophy can be seen. There is moderate left-sided and at least moderate right-sided neural foraminal narrowing. At least moderate central canal narrowing is seen at this level. There is mild progression of degenerative change compared to 2022. L5 S1: Moderate loss of disc height is seen. Loss of disc signal is seen. Reactive marrow endplate changes are seen anteriorly, which are hyperintense on T1-weighted and T2-weighted imaging and most consistent with fatty metaplasia (Modic type II changes). Moderate disc bulge is seen, with a central/left disc extrusion, with inferior migration of the disc material, as on series 2, image 10 and on series 7, image 30. At least moderate facet hypertrophy can be seen. Moderate bilateral neural foraminal narrowing is seen. Moderate central canal narrowing is seen. When comparison is made with the prior images, these findings are similar. IMPRESSION: Multiple levels of significant lumbar spine degenerative change can be seen, which are progressed at several levels compared to 2022. Dictated by: Song Meehan M.D. on 11/21/2024 at 13:03 Approved by: Song Meehan M.D. on 11/21/2024 at 13:10
== END ==
LOC: MRI 11:52
PROVIDERS: PCP Family Medicine; Referring Provider Family Medicine; Visit Provider Family Medicine
DX: M51.27 Other intervertebral disc displacement, lumbosacral region (principal); M53.3 Sacrococcygeal disorders, not elsewhere classified; M47.816 Spondylosis without myelopathy or radiculopathy, lumbar region; M47.817 Spondylosis without myelopathy or radiculopathy, lumbosacral region; G89.29 Other chronic pain
CPT/HCPCS: 72148

== ENCOUNTER → 2025-03-08 14:00 | Outpatient (CLI) | payer MEDICARE, SELFPAY ==
--- NOTE | 2025-03-08 14:01 | DI.CT.S_ITS ---
PROCEDURE: CT LUNG LOW DOSE SCREENING INDICATIONS: HX OF TOBACCO USE DISORDER TECHNIQUE: Noncontrast 2.0-2.5 mm thick sections acquired from the pulmonary apices to the posterior costophrenic angles. 7 mm thick axial MIP, and 5 mm coronal and sagittal reformats were then acquired. For radiation dose reduction, the following was used: automated exposure control, adjustment of mA and/or kV according to patient size. COMPARISON: None. FINDINGS: Image quality: Diagnostic. Lower Neck: No enlarged lymph nodes. Thyroid: No thyroid nodules which require sonographic follow up, per consensus guidelines. Axillae: No enlarged lymph nodes. Chest Wall: Unremarkable. Bones: Unremarkable. Lungs and Pleura: No pneumothorax or pleural effusions. No consolidation or suspicious nodules. Mild posterior lung base scarring bilaterally. Heart: Heart size is normal. No pericardial effusion. Thoracic Vessels: The aorta and pulmonary arteries demonstrate normal size. Mediastinum and Shanita: No enlarged lymph nodes. Esophagus: No wall thickening. No hiatal hernia. Upper Abdomen: Visualized upper abdomen solid organs and bowel loops appear normal. IMPRESSION: No suspicious pulmonary nodules. LUNG-RADS 1; continued annual screening, if eligible. Clinically Significant Non-pulmonary Findings: Mild posterior lung base scarring bilaterally symmetric. Dictated by: Christoph Delgado M.D. on 03/08/2025 at 16:29 Approved by: Christoph Delgado M.D. on 03/08/2025 at 16:34
== END ==
PROVIDERS: PCP Family Medicine; Referring Provider Family Medicine; Visit Provider Family Medicine
DX: J98.4 Other disorders of lung (principal); Z87.891 Personal history of nicotine dependence
CPT/HCPCS: 71271

== ENCOUNTER → 2025-03-26 06:54 | Outpatient (CLI) | payer MEDICARE, SELFPAY ==
--- NOTE | 2025-03-26 06:55 | DI.US.S_ITS ---
PROCEDURE: US EXTREMITY NONVASC LOWER LT INDICATIONS: CELLULITIS KNEE. H/O TKA. ?SEPTIC BURSITIS/ABSCESS TECHNIQUE: Real-time scanning was performed of the left knee , with image documentation. COMPARISON: None. FINDINGS: Diffuse subcutaneous edema. Tiny 3 mm fluid collection unencapsulated in the medial soft tissues. 1.6 cm fluid collection in the soft tissues lateral to the joint. Small shadowing calculi 5 mm. IMPRESSION: Diffuse subcutaneous edema. Non-specific soft tissue fluid collections. Consider follow-up contrast CT or MR evaluation Approved by: James Thompson M.D. on 03/26/2025 at 17:41
== END ==
LOC: US 06:54
PROVIDERS: PCP Family Medicine; Referring Provider Family Medicine; Visit Provider Family Medicine
DX: L03.116 Cellulitis of left lower limb (principal); R60.1 Generalized edema
CPT/HCPCS: 76882

== ENCOUNTER → 2025-04-27 11:35 | Outpatient (CLI) | payer MEDICARE, SELFPAY ==
--- NOTE | 2025-04-27 11:38 | DI.RAD.S_ITS ---
PROCEDURE: XR FOOT RT MIN 3V INDICATIONS: Crush distal right foot TECHNIQUE: 3 views of the foot were acquired. COMPARISON: [facility], CR, XR FOOT LT MIN 3V, 06/27/2024, 16:17. [facility], CR, XR FOOT LT MIN 3V, 03/25/2021, 13:28. FINDINGS: Bones: 1st digit proximal phalanx displaced fracture at the distal aspect. No dislocations. No suspicious bony lesions. Small plantar calcaneal spur. Soft tissues: No tibiotalar joint effusion. Achilles tendon appears normal. IMPRESSION: 1st digit proximal phalanx displaced fracture. Dictated by: Zak Okeefe M.D. on 04/27/2025 at 11:39 Approved by: Zak Okeefe M.D. on 04/27/2025 at 11:42
== END ==
PROVIDERS: PCP Family Medicine; Referring Provider Family Medicine; Visit Provider Nurse Practitioner Family
DX: S92.411A Displaced fracture of proximal phalanx of right great toe, initial encounter for closed fracture (principal); S99.921A Unspecified injury of right foot, initial encounter; X58.XXXA Exposure to other specified factors, initial encounter
CPT/HCPCS: 73630